=== PATIENT | female | born 1950 | race Caucasian/White ===

== ENCOUNTER 2018-05-30 11:07 | Emergency (ER) | payer OTHER ==
--- NOTE | 2018-05-30 11:36 | RAD REPORT ---
EXAM DESCRIPTION: CT - Ct Stroke Brain Wo Cont - 05/30/2018 11:28 am CLINICAL HISTORY: SLURRED SPEECH CVA symptomology COMPARISON: [id number] dated 01/08/2014; THORAX WO CONTRAST dated 12/17/2014 TECHNIQUE: All CT scans are performed using dose optimization technique as appropriate and may inclu de automated exposure control or mA/KV adjustment according to patient size. FINDINGS: No intracranial hemorrhage, hydrocephalus or extra-axial fluid collection.Mild generalized brain atrophy.No areas of brain edema or evidence of midline shift. The paranasal sinuses and mastoids are clear. The calvarium is intact. IMPRESSION: No acute intracranial abnormality. If there is continued clinical concern for CVA, MR i maging of the brain would be recommended.
[2018-05-30 11:43] LABS: Absolute Lymphocytes (CBC) 0.9 K/uL (0.7-4.9); Absolute Monocytes 0.2 K/uL (0.1-1.3); Basophils % 0.7 % (0-1.3); Eosinophils % 0.1 % (0-4.4); Hematocrit 39.5 % (36.0-45.0); Lymphocytes % 28.3 % (15.3-44.8); MCH 30.5 pg (27.0-35.0); MCV 88.3 fL (80-100); MPV 7.7 fL (7.6-11.3); Monocytes % 7.1 % (3.3-12.3); RBC Red Blood Cell Count 4.48 M/uL (3.86-4.86)
[2018-05-30 11:45] LABS: Protime INR 0.94
[2018-05-30 12:03] LABS: ALT/SGPT 20 U/L (12-78); AST/SGOT 21 U/L (15-37); Albumin 3.2 g/dL (3.4-5.0); Alkaline Phosphatase 104 U/L (45-117); BUN Blood Urea Nitrogen 11 mg/dL (7-18); Bicarbonate 25 mmol/L (21-32); Bilirubin Direct < 0.1 mg/dL (0-0.2); Bilirubin Total 0.2 mg/dL (0.2-1.0); Glucose Level 157 mg/dL (74-106); Magnesium 1.7 mg/dL (1.8-2.4); NT PRO-BNP 369 pg/mL (<125); Sodium Level 135 mmol/L (136-145); Troponin (Emerg Dept Use Only) < 0.02 ng/mL (0.0-0.045)
--- NOTE | 2018-05-30 12:33 | RAD REPORT ---
EXAM DESCRIPTION: RAD - Chest Single View - 05/30/2018 11:42 am CLINICAL HISTORY: AMS Chest pain. COMPARISON: CHEST SINGLE VIEW dated 12/17/2014; CHEST SINGLE VIEW dated 05/16/2011; CHEST SINGLE VIEW dated 05/04/2008; CHEST PA AND LAT 2 VIEW dated 06/13/2002 FINDINGS: Portable technique limits examination quality. The lungs are grossly clear. The heart is normal in size. No displaced fractures.Hardware is present proximal right humerus. IMPRESSION: No acute intrathoracic process suspected.
[2018-05-30] MEDS ORDERED: D5 0.45 NS 1,000 ML IV ONE (12:59)
[2018-05-30] MEDS ORDERED: HYDROCODONE/APAP 7.5/325 MG TAB ONE (13:24)
[2018-05-30] MEDS ORDERED: MAGNESIUM SULFATE 1 gm IVPB 1 GM/100 ML BAG IV ONE (13:24)
--- NOTE | 2018-05-30 14:06 | ER ---
Nurse's Notes [facility] Name: Christy Ceballos Age: 67 yrs Sex: Female : 1950 Arrival Date: 05/30/2018 Time: 11:13 Bed 4 Private MD: Diagnosis: Hypoglycemia, unspecified Presentation: 05/30 11:04 Presenting complaint: EMS states: Pt was watching TV w/ and suddenly became ph unresponsive and slid off of couch, pt unresponsive en route to ED, symptom onset approx [address] THRU ORDER TAKER. Transition of care: patient was not received from another setting of care. Onset of symptoms was May 30, 2018. Risk Assessment: Do you want to hurt yourself or someone else? Patient reports no desire to harm self or others. Care prior to arrival: None. upon arrival to ED EMS checked BGL, found to below at 30, 1 amp D50 administered. 11:04 Method Of Arrival: EMS: [facility] ph 11:04 Acuity: ASHLEY 2 ph 14:41 Initial Sepsis Screen: Does the patient meet any 2 criteria? No. Patient's initial aj1 sepsis screen is negative. Does the patient have a suspected source of infection? No. Patient's initial sepsis screen is negative. Historical: - Allergies: 11:30 Morphine; aj1 - Home Meds: 11:30 carisoprodol 350 mg Oral tab 1 tab fou times per day [Active]; diazepam 10 mg Oral tab aj1 1 tab 4 times per day [Active]; furosemide 40 mg Oral tab 1 tab 3 times per day as needed for edema [Active]; gabapentin 600 mg oral tab 1 tab 3 times per day [Active]; gemfibrozil 600 mg Oral tab 1 tab 2 times per day [Active]; glipizide 10 mg Oral tab 1 tab 2 times per day [Active]; hydrocodone-acetaminophen 10-325 mg Oral tab 1 tab every 4 hours as needed for pain [Active]; metformin 500 mg Oral Tb24 1 tab once daily [Active]; metoprolol tartrate 100 mg Oral tab 1 tab 2 times per day [Active]; NitroQuick SL 0.4 mg as needed [Active]; promethazine 25 mg Oral tab 1 tab 2 times per day [Active]; quinapril 40 mg Oral tab 1 tab once daily [Active]; quinine sulfate 324 mg Oral cap 2 caps at bedtime [Active]; ranitidine HCl 300 mg Oral cap 1 cap once daily [Active]; - PMHx: 11:34 Hypertension; Diabetes - NIDDM; CAD; Hyperlipidemia; GERD; Anemia; iron deficiency; aj1 cobalamin deficiency; hypomagnesemia; chronic pain syndrome; chronic low back pain; osteoarthritis; Degenerative disc disease; ankylosing spondylitis; - Immunization history:: Adult Immunizations up to date. - Social history:: Smoking status: Patient/guardian denies using tobacco. - Ebola Screening: : No symptoms or risks identified at this time. Screenin:30 Abuse screen: Denies threats or abuse. Denies injuries from another. aj1 11:30 Nutritional screening: No deficits noted. Tuberculosis screening: No symptoms or risk aj1 factors identified. 15:30 Fall Risk Fall in past 12 months (25 points). No secondary diagnosis (0 pts). No IV (0 aj1 pts). Ambulatory Aid- Crutches/Cane/Walker (15 pts). Gait- Weak (10 pts.). Mental Status- Oriented to own ability (0 pts). Total Lentz Fall Scale indicates Low Risk Score (25-44 pts). As available Patient and Family Educated on Fall Prevention Program and strategies. Assessment: 11:04 Reassessment: FSBS 30 by EMS personnel. aj1 11:04 Reassessment: RHODA Gold at bedside to assess patient. aj1 11:05 General: Behavior is unresponsive. Pain: Unable to use pain scale. Patient is aj1 unresponsive. Neuro: Level of Consciousness is unresponsive. Cardiovascular: Patient's skin is warm and dry. Respiratory: Airway is patent Respiratory effort is even, unlabored, Respiratory pattern is regular, symmetrical. 11:06 Reassessment: D50 given by Josette Parks RN. aj1 11:07 Reassessment: Patient opens eyes, is able to tell us her name, follow commands. Patient aj1 is able to move all 4 extremities. 11:11 Reassessment: Patient transported to [place] via stretcher, accompanied by Jerald Chirinos RN. aj1 11:22 Reassessment: Patient returned to room. aj1 11:23 Reassessment: CXR done at bedside. aj1 11:30 General: Appears in no apparent distress. comfortable, Behavior is calm, cooperative, aj1 appropriate for age. Pain: Complains of pain in back Pain currently is 8 out of 10 on a pain scale. Neuro: Level of Consciousness is awake, alert, obeys commands, Oriented to person, place, time, situation, Beater Engineer are equal bilaterally Moves all extremities. Full function Speech is normal, Facial symmetry appears normal. Cardiovascular: Heart tones S1 S2 present Patient's skin is warm and dry. Rhythm is regular. Respiratory: Airway is patent Respiratory effort is even, unlabored, Respiratory pattern is regular, symmetrical. GI: No signs and/or symptoms were reported involving the gastrointestinal system. Abdomen is non-distended. : No signs and/or symptoms were reported regarding the genitourinary system. EENT: No signs and/or symptoms were reported regarding the EENT system. Derm: No signs and/or symptoms reported regarding the dermatologic system. Skin is pink, warm \T\ dry. normal. Musculoskeletal: No signs and/or symptoms reported regarding the musculoskeletal system. Circulation, motion, and sensation intact. 11:35 Reassessment: Labs drawn and sent by Josette Parks RN. aj1 11:35 Reassessment: NIHSS performed by RHODA Gold. aj1 11:39 Reassessment: FSBS rechecked, currently 110. aj1 11:39 Reassessment: Hold D5 1/2 NS per RHODA Gold. aj1 11:40 Reassessment: Swallow screen done, patient passed. aj1 11:41 Reassessment: EKG done by VANITA Alonso. aj1 12:30 Reassessment: Patient appears in no apparent distress at this time. No changes from aj1 previously documented assessment. Patient and/or family updated on plan of care and expected duration. Pain level reassessed. Patient is alert, oriented x 3, equal unlabored respirations, skin warm/dry/pink. 13:30 Reassessment: Patient and/or family updated on plan of care and expected duration. Pain aj1 level reassessed. General: Appears in no apparent distress. comfortable, Behavior is calm, cooperative, appropriate for age. Neuro: Level of Consciousness is awake, alert, obeys commands, Oriented to person, place, time, situation, Beater Engineer are equal bilaterally Moves all extremities. Full function Speech is normal, Facial symmetry appears normal. Cardiovascular: Patient's skin is warm and dry. Respiratory: Airway is patent Respiratory effort is even, unlabored, Respiratory pattern is regular, symmetrical. GI: No signs and/or symptoms were reported involving the gastrointestinal system. : No signs and/or symptoms were reported regarding the genitourinary system. EENT: No signs and/or symptoms were reported regarding the EENT system. Derm: No signs and/or symptoms reported regarding the dermatologic system. Skin is pink, warm \T\ dry. normal. Musculoskeletal: No signs and/or symptoms reported regarding the musculoskeletal system. Circulation, motion, and sensation intact. 14:36 Reassessment: Patient appears in no apparent distress at this time. No changes from aj1 previously documented assessment. Patient and/or family updated on plan of care and expected duration. Pain level reassessed. Patient is alert, oriented x 3, equal unlabored respirations, skin warm/dry/pink. Vital Signs: 11:30 BP 88 / 67; Pulse 74; Resp 16; Pulse Ox 100% on 2 lpm NC; ph 11:35 BP 107 / 63; Pulse 72; Resp 18; Pulse Ox 99% on R/A; aj1 12:30 BP 97 / 56; Pulse 77; Resp 20; Pulse Ox 96% on R/A; aj1 13:30 BP 121 / 62; Pulse 75; Resp 18; Pulse Ox 96% on R/A; aj1 14:38 BP 109 / 51; Pulse 74; Resp 18; Pulse Ox 95% on R/A; aj1 NIH Stroke Scale Scores: 11:35 NIHSS Score: 0 cp ED Course: 11:06 Inserted saline lock: 22 gauge in left forearm, using aseptic technique. ,using aseptic 1 technique. by Josette Parks RN. 11:13 Patient arrived in ED. bd 11:27 Tremaine Jackson MD is Attending Physician. britany 11:27 CT completed. Patient tolerated procedure well. Patient moved back from CT. cw1 11:27 Tremaine Jain PA is PHCP. cp 11:30 Triage completed. ph 11:30 Patient has correct armband on for positive identification. Bed in low position. Call aj1 light in reach. Side rails up X 1. bus driver/monitor on. Pulse ox on. NIBP on. 11:30 No provider procedures requiring assistance completed. aj1 11:32 Arm band placed on. ph 11:46 Marlene Cooney, RN is Primary Nurse. aj1 13:51 Urine collected: clean catch specimen, cloudy, simon colored. jb1 15:34 IV discontinued, intact, bleeding controlled, No redness/swelling at site. Pressure aj1 dressing applied. Administered Medications: 11:05 Drug: D50W 50 ml Route: IVP; Site: left forearm; ph 15:30 Follow up: Response: No adverse reaction aj1 13:19 Drug: Magnesium Sulfate 1 grams Route: IVPB; Infused Over: 1 hrs; Site: left forearm; aj1 14:44 Follow up: IV Status: Completed infusion; IV Intake: 100ml aj1 13:20 Drug: [place] (7.5 mg-325 mg) 1 tabs Route: PO; aj1 14:43 Follow up: Response: No adverse reaction aj1 22:35 Not Given (Physician Discretion): D5-1/2 NS 1000 ml IV at 75 ml/hr continuous aj1 Point of Care Testing: Blood Glucose: 11:04 Blood Glucose: 30 mg/dL; hb 11:39 Blood Glucose: 110 mg/dL; hb 12:57 Blood Glucose: 117 mg/dL; aj1 Ranges: Intake: 14:44 IV: 100ml; Total: 100ml. aj1 Outcome: 14:05 Discharge ordered by . cp 15:30 Discharged to home ambulatory, by Josette Parks RN aj1 15:30 Condition: good 15:30 Discharge instructions given to patient, by Josette Parks RN 15:34 Patient left the ED. hb NIH Stroke Scale - NIH Stroke Score Date: 05/30/2018 Time: 11:35 Total Score = 0 1a. Level of Consciousness (LOC) - 0(Alert) 1b. Level of Consciousness (LOC) (Year \T\ Age) - 0(Both) 1c. LOC Commands (Open \T\ Closes Eyes/Senior Recruiter) - 0(Both) 2. Best Gaze (Lateral Gaze Paresis) - 0(Normal) 3. Visual Field Loss - 0(No visual loss) 4. Facial Palsy - 0(Normal) 5a. Left Arm: Motor (10-second hold) - 0(No drift) 5b. Right Arm: Motor (10-second hold) - 0(No drift) 6a. Left Leg: Motor (5-second hold - always test supine) - 0(No drift) 6b. Right Leg: Motor (5-second hold - always test supine) - 0(No drift) 7. Limb Ataxia (finger/nose \T\ heel/wall - test with eyes open) - 0(Absent) 8. Sensory Loss (pinprick arms/legs/face) - 0(Normal) 9. Best Language: Aphasia (description/naming/reading) - 0(No aphasia) 10. Dysarthria (speech clarity - read or repeat words) - 0(Normal) 11. Extinction and Inattention (visual/tactile/auditory/spatial/personal) - 0(No abnormality) Initials: cp Signatures: Arsh Whatley jb1 Georgie Márquez Angela RN RN aj1 Tremaine Jackson MD MD cha Woodley, Debra cw1 Oralia Chirinos RN RN ph Tremaine Jain PA PA cp Mignon Parks, YANELI RN hb
--- NOTE | 2018-05-30 14:06 | EDPHYS ---
Physician Documentation [facility] Name: Christy Ceballos Age: 67 yrs Sex: Female : 1950 Arrival Date: 05/30/2018 Time: 11:13 Bed 4 Private MD: SADAF Physician Tremaine Jackson HPI: 05/30 11:20 This 67 yrs old Female presents to ER via EMS with complaints of AMS. cp 11:20 The patient's problem is reported as altered mental status, confused, decreased cp responsiveness, weakness, that is generalized. Onset: The symptoms/episode began/occurred suddenly, this morning. 11:20 Duration: The episode is continuous. cp 11:20 reports he left house around 0900 this morning to last picker breakfast. Patient cp appeared normal, and when he returned approximately 15 minutes later, patient was found partially on floor and couch with decreased level of consciousness. 11:20 Patient's baseline: Neuro: alert and fully oriented, Motor: no deficits, Ambulation: cp walks without assistance, Speech: normal. Historical: - Allergies: 11:30 Morphine; aj1 - Home Meds: 11:30 carisoprodol 350 mg Oral tab 1 tab fou times per day [Active]; diazepam 10 mg Oral tab aj1 1 tab 4 times per day [Active]; furosemide 40 mg Oral tab 1 tab 3 times per day as needed for edema [Active]; gabapentin 600 mg oral tab 1 tab 3 times per day [Active]; gemfibrozil 600 mg Oral tab 1 tab 2 times per day [Active]; glipizide 10 mg Oral tab 1 tab 2 times per day [Active]; hydrocodone-acetaminophen 10-325 mg Oral tab 1 tab every 4 hours as needed for pain [Active]; metformin 500 mg Oral Tb24 1 tab once daily [Active]; metoprolol tartrate 100 mg Oral tab 1 tab 2 times per day [Active]; NitroQuick SL 0.4 mg as needed [Active]; promethazine 25 mg Oral tab 1 tab 2 times per day [Active]; quinapril 40 mg Oral tab 1 tab once daily [Active]; quinine sulfate 324 mg Oral cap 2 caps at bedtime [Active]; ranitidine HCl 300 mg Oral cap 1 cap once daily [Active]; - PMHx: 11:34 Hypertension; Diabetes - NIDDM; CAD; Hyperlipidemia; GERD; Anemia; iron deficiency; aj1 cobalamin deficiency; hypomagnesemia; chronic pain syndrome; chronic low back pain; osteoarthritis; Degenerative disc disease; ankylosing spondylitis; - Immunization history:: Adult Immunizations up to date. - Social history:: Smoking status: Patient/guardian denies using tobacco. - Ebola Screening: : No symptoms or risks identified at this time. ROS: 11:25 Constitutional: Negative for body aches, chills, fever, poor PO intake. cp 11:25 Cardiovascular: Negative for chest pain. cp 11:25 Respiratory: Negative for cough, wheezing. 11:25 Abdomen/GI: Negative for abdominal pain, vomiting, diarrhea, constipation, black/tarry stool, rectal bleeding. 11:25 Skin: Negative for cellulitis, rash. 11:25 Neuro: Positive for altered mental status, weakness, Negative for headache, seizure activity. 11:25 All other systems are negative. Exam: 11:40 Constitutional: The patient appears in no acute distress, alert, awake, cp non-diaphoretic, non-toxic, well developed, well nourished. 11:40 Head/Face: Normocephalic, atraumatic. cp 11:40 Eyes: Periorbital structures: appear normal, Pupils: equal, round, and reactive to light and accomodation, Extraocular movements: intact throughout, Conjunctiva: normal, no exudate, no injection, Lids and lashes: appear normal, bilaterally. 11:40 ENT: External ear(s): are unremarkable, Ear canal(s): are normal, clear, TM's: bulging, is not appreciated, bilaterally, dullness, bilaterally, erythema, is not appreciated, bilaterally, Nose: is normal, Mouth: Lips: moist, Oral mucosa: moist, Posterior pharynx: is normal, airway is patent, no erythema, no exudate. 11:40 Neck: C-spine: vertebral tenderness, is not appreciated, crepitus, is not appreciated, ROM/movement: is normal, is supple, without pain, no range of motions limitations, no meningismus, no nuchal rigidity. 11:40 Chest/axilla: Inspection: normal, Palpation: is normal, no crepitus, no tenderness. 11:40 Cardiovascular: Rate: normal, Rhythm: regular, Pulses: Pulses are 2+ in right radial artery and left radial artery. Edema: is not appreciated, JVD: is not appreciated. 11:40 Respiratory: the patient does not display signs of respiratory distress, Respirations: normal, no use of accessory muscles, no retractions, no splinting, no tachypnea, labored breathing, is not present, Breath sounds: are clear throughout, no decreased breath sounds, no stridor, no wheezing. 11:40 Abdomen/GI: Inspection: abdomen appears normal, Bowel sounds: active, all quadrants, Palpation: abdomen is soft and non-tender, in all quadrants. 11:40 Skin: cellulitis, is not appreciated, no rash present. 11:40 Neuro: Orientation: to person, place, situation, Mentation: able to follow commands, slow to respond, Cerebellar function: Romberg testing is negative, normal finger to nose testing, Motor: moves all fours, negative for focal deficits, Sensation: no obvious gross deficits. 11:50 ECG was reviewed by the Attending Physician. cp 11:58 Radiologist reports: no acute findings cp Vital Signs: 11:30 BP 88 / 67; Pulse 74; Resp 16; Pulse Ox 100% on 2 lpm NC; ph 11:35 BP 107 / 63; Pulse 72; Resp 18; Pulse Ox 99% on R/A; aj1 12:30 BP 97 / 56; Pulse 77; Resp 20; Pulse Ox 96% on R/A; aj1 13:30 BP 121 / 62; Pulse 75; Resp 18; Pulse Ox 96% on R/A; aj1 14:38 BP 109 / 51; Pulse 74; Resp 18; Pulse Ox 95% on R/A; aj1 NIH Stroke Scale Scores: 11:35 NIHSS Score: 0 cp MDM: 11:27 Patient medically screened. britany 11:29 ED course: Patient examined by me and tpa not felt to be warranted after marked cp improvement in mental status neuro exam after administration of 1 amp D50W. 14:03 Data reviewed: vital signs, nurses notes, lab test result(s), EKG, radiologic studies, cp CT scan. 14:03 Differential diagnosis: CVA, TIA, metabolic disorder, drug effects, hypoglycemia. Test cp interpretation: by ED physician or midlevel provider: ECG, plain radiologic studies. Counseling: I had a detailed discussion with the patient and/or guardian regarding: the historical points, exam findings, and any diagnostic results supporting the discharge/admit diagnosis, lab results, radiology results, the need for outpatient follow up, an tank pumper panelboard, to return to the emergency department if symptoms worsen or persist or if there are any questions or concerns that arise at home. Response to treatment: the patient's symptoms have markedly improved after treatment, VSS. Patient back to baseline after observation period in ED. Blood glucose stable. Will discharge to home for continued monitoring. 05/30 11:17 Order name: Basic Metabolic Panel 05/30 11:17 Order name: CBC with Diff cp 05/30 11:17 Order name: LFT's cp 05/30 11:17 Order name: Magnesium cp 05/30 11:17 Order name: NT PRO-BNP cp 05/30 11:17 Order name: PT-INR cp 05/30 11:17 Order name: Troponin (emerg Dept Use Only) cp 05/30 11:44 Order name: CBC with Automated Diff; Complete Time: 11:54 EDMS 05/30 14:02 Interpretation: Normal except: WBC 3.2. 05/30 11:47 Order name: Protime (+INR); Complete Time: 11:54 EDMS 05/30 12:03 Order name: Basic Metabolic Panel; Complete Time: 12:51 EDMS 05/30 14:02 Interpretation: Normal except: NA 135; GLUC 157. 05/30 12:03 Order name: Liver (Hepatic) Function; Complete Time: 12:51 EDMS 05/30 12:04 Order name: Troponin (Emerg Dept Use Only); Complete Time: 12:51 EDMS 05/30 14:03 Interpretation: TROPED < 0.02; Reviewed. 05/30 12:04 Order name: NT PRO-BNP; Complete Time: 12:51 EDMS 05/30 12:04 Order name: Magnesium; Complete Time: 12:51 EDMS 05/30 14:03 Interpretation: Abnormal: MG 1.7. 05/30 11:17 Order name: EKG; Complete Time: 11:18 cp 05/30 11:17 Order name: Cardiac monitoring; Complete Time: 11:38 cp 05/30 11:17 Order name: CT Head Brain wo Cont cp 05/30 11:17 Order name: XRAY Chest (1 view) cp 05/30 11:21 Order name: CT Stroke Brain w/o Contrast bd 05/30 11:37 Order name: CT; Complete Time: 11:54 EDMS 05/30 11:54 Interpretation: Report reviewed. cp 05/30 12:27 Order name: Diet Ada 2000 Jamir; Complete Time: 12:27 cp 05/30 12:34 Order name: RAD; Complete Time: 12:51 EDMS 05/30 13:36 Order name: Urine Microscopic Only cp 05/30 15:13 Order name: Glucose, Ancillary Testing; Complete Time: 12:01 EDMS 05/30 15:13 Order name: Glucose, Ancillary Testing; Complete Time: 12:01 EDMS 05/30 15:13 Order name: Glucose, Ancillary Testing; Complete Time: 12:01 EDMS 05/30 11:17 Order name: EKG - Nurse/Tech; Complete Time: 11:38 cp 05/30 11:17 Order name: IV Saline Lock; Complete Time: 11:38 cp 05/30 11:17 Order name: Labs collected and sent; Complete Time: 11:38 cp 05/30 11:17 Order name: O2 Per Protocol; Complete Time: 11:38 cp 05/30 11:17 Order name: O2 Sat Monitoring; Complete Time: 11:38 cp 05/30 13:36 Order name: Urine Dipstick-Ancillary (obtain specimen); Complete Time: 13:51 cp 05/30 14:04 Order name: Accucheck Blood Glucose; Complete Time: 15:14 cp EC:50 Rate is 70 beats/min. Rhythm is regular. MN interval is normal. QRS interval is normal. cp QT interval is normal. Interpreted by me. Reviewed by me. Administered Medications: 11:05 Drug: D50W 50 ml Route: IVP; Site: left forearm; ph 15:30 Follow up: Response: No adverse reaction aj1 13:19 Drug: Magnesium Sulfate 1 grams Route: IVPB; Infused Over: 1 hrs; Site: left forearm; aj1 14:44 Follow up: IV Status: Completed infusion; IV Intake: 100ml aj1 13:20 Drug: [place] (7.5 mg-325 mg) 1 tabs Route: PO; aj1 14:43 Follow up: Response: No adverse reaction aj1 22:35 Not Given (Physician Discretion): D5-1/2 NS 1000 ml IV at 75 ml/hr continuous aj1 Point of Care Testing: Blood Glucose: 11:04 Blood Glucose: 30 mg/dL; hb 11:39 Blood Glucose: 110 mg/dL; hb 12:57 Blood Glucose: 117 mg/dL; aj1 Ranges: Critical Glucose Levels:Adult <50 mg/dl or >400 mg/dl <40 mg/dl or >180 mg/dl Disposition: 15:45 Chart complete. cp Disposition: 05/30/18 14:05 Discharged to Home. Impression: Hypoglycemia, unspecified. - Condition is Stable. - Discharge Instructions: Hypoglycemia, Blood Glucose Monitoring, Adult. - Medication Reconciliation Form, Thank You Letter, Antibiotic Education, Prescription Opioid Use form. - Follow up: Private Physician; When: 1 - 2 days; Reason: Recheck today's complaints. - Problem is new. - Symptoms have improved. NIH Stroke Scale - NIH Stroke Score Date: 05/30/2018 Time: 11:35 Total Score = 0 1a. Level of Consciousness (LOC) - 0(Alert) 1b. Level of Consciousness (LOC) (Year \T\ Age) - 0(Both) 1c. LOC Commands (Open \T\ Closes Eyes/Telephone Recorder) - 0(Both) 2. Best Gaze (Lateral Gaze Paresis) - 0(Normal) 3. Visual Field Loss - 0(No visual loss) 4. Facial Palsy - 0(Normal) 5a. Left Arm: Motor (10-second hold) - 0(No drift) 5b. Right Arm: Motor (10-second hold) - 0(No drift) 6a. Left Leg: Motor (5-second hold - always test supine) - 0(No drift) 6b. Right Leg: Motor (5-second hold - always test supine) - 0(No drift) 7. Limb Ataxia (finger/nose \T\ heel/wall - test with eyes open) - 0(Absent) 8. Sensory Loss (pinprick arms/legs/face) - 0(Normal) 9. Best Language: Aphasia (description/naming/reading) - 0(No aphasia) 10. Dysarthria (speech clarity - read or repeat words) - 0(Normal) 11. Extinction and Inattention (visual/tactile/auditory/spatial/personal) - 0(No abnormality) Initials: cp Addendum: 06/01/2018 07:24 Co-signature as Attending Physician, Tremaine Jackson MD I agree with the britany assessment and plan of care. Signatures: Dispatcher [employer] Marlene Corbin RN RN aj1 Tremaine Jackson MD MD cha Hall, Patricia RN RN Tremaine Jain PA PA cp Mignon Parks, RN RN hb Corrections: (The following items were deleted from the chart) 05/30 15:34 14:05 05/30/2018 14:05 Discharged to Home. Impression: Hypoglycemia, hb unspecified. Condition is Stable. Forms are Medication Reconciliation Form, Thank You Letter, Antibiotic Education, Prescription Opioid Use. Follow up: Private Physician; When: 1 - 2 days; Reason: Recheck today's complaints. Problem is new. Symptoms have improved. cp
[2018-05-30 15:42] LABS: Urine Bacteria <20 /HPF (<20); Urine Culture Reflex Order NOT NEEDED; Urine RBC <5 /HPF (NONE SEEN)
[2018-05-30 16:43] VITALS: BP 109/51; O2SAT 95
== END 2018-05-30 15:34 | disposition home or self-care (01) ==
LOC: ER 11:07
DX: E11.649 Type 2 diabetes mellitus with hypoglycemia without coma (principal); E78.5 Hyperlipidemia, unspecified; I10 Essential (primary) hypertension; I25.10 Atherosclerotic heart disease of native coronary artery without angina pectoris; K21.9 Gastro-esophageal reflux disease without esophagitis; D50.9 Iron deficiency anemia, unspecified; G89.4 Chronic pain syndrome; M54.5 Low back pain; M19.90 Unspecified osteoarthritis, unspecified site; M45.9 Ankylosing spondylitis of unspecified sites in spine; Z79.84 Long term (current) use of oral hypoglycemic drugs; Z79.899 Other long term (current) drug therapy
CPT/HCPCS: 36415; 70450; 71045; 80048; 80076; 81015; 82962 ×3; 83735; 83880; 84484; 85025; 85610; 96365; 96375; 99285; J3475

== ENCOUNTER 2021-10-10 04:09 | Inpatient (IN) | payer OTHER ==
[2021-10-10] MEDS ORDERED: ONDANSETRON 4 MG/2 ML VIAL ONE ×2 (04:44→15:17)
[2021-10-10] MEDS ORDERED: NA CHLORIDE 0.9% 1,000 ML ONE (04:45)
[2021-10-10 05:03] LABS: Absolute Lymphocytes (CBC) 1.9 K/uL (0.7-4.9); Hematocrit 37.5 % (36.0-45.0); Lymphocytes % 23.3 % (15.3-44.8); MPV 7.4 fL (7.6-11.3); RBC Red Blood Cell Count 4.27 M/uL (3.86-4.86)
[2021-10-10 05:30] LABS: ALT/SGPT 16 U/L (12-78); AST/SGOT 11 U/L (15-37); Albumin 2.8 g/dL (3.4-5.0); Alkaline Phosphatase 86 U/L (45-117); BUN Blood Urea Nitrogen 4 mg/dL (7-18); Bicarbonate 30 mmol/L (21-32); Bilirubin Total 0.3 mg/dL (0.2-1.0); Glucose Level 165 mg/dL (74-106); Lipase 34 U/L (73-393); Potassium 2.4 mmol/L (3.5-5.1); Protein, Total 6.6 g/dL (6.4-8.2)
[2021-10-10 05:32] LABS: Sodium Level 139 mmol/L (136-145)
[2021-10-10 06:19] LABS: Urine Blood Negative (Negative); Urine Glucose Negative (Negative); Urine Protein Negative (Negative)
[2021-10-10] MEDS ORDERED: KETOROLAC 30 MG/ML INJ ONE (06:30)
[2021-10-10] MEDS ORDERED: KCL 20 MEQ/100 mL IVPB 100 ML IV ONE (06:30)
[2021-10-10] MEDS ORDERED: POTASSIUM 25 MEQ EFFERV TAB ONE (06:30)
--- NOTE | 2021-10-10 07:14 | ER ---
Nurse's Notes [facility] Name: Christy Ceballos Age: 71 yrs Sex: Female : 1950 Arrival Date: 10/10/2021 Time: 04:10 Bed 20 Private MD: Diagnosis: Hypokalemia;Flank Pain Presentation: 10/10 04:11 Chief complaint: EMS states: "Been having bilateral flank pain. Been unable to lay flat tw5 for several days. just passed last night.". Coronavirus screen: Vaccine status: Patient reports being unvaccinated. Ebola Screen: Patient negative for fever greater than or equal to 101.5 degrees Fahrenheit, and additional compatible Ebola Virus Disease symptoms Patient denies exposure to infectious person. Patient denies travel to an Ebola-affected area in the 21 days before illness onset. Initial Sepsis Screen: Does the patient meet any 2 criteria? No. Patient's initial sepsis screen is negative. Does the patient have a suspected source of infection? No. Patient's initial sepsis screen is negative. Risk Assessment: Do you want to hurt yourself or someone else? Patient reports no desire to harm self or others. Onset of symptoms is unknown. 04:11 Method Of Arrival: EMS: [facility] tw5 04:11 Acuity: ASHLEY 3 Historical: - Allergies: 04:14 Morphine; - Home Meds: 15:11 carisoprodol 350 mg Oral tab 1 tab fou times per day [Active]; diazepam 10 mg Oral tab ph 1 tab 4 times per day [Active]; furosemide 40 mg Oral tab 1 tab 3 times per day as needed for edema [Active]; gabapentin 600 mg Oral tab 1 tab 3 times per day [Active]; gemfibrozil 600 mg Oral tab 1 tab 2 times per day [Active]; glipizide 10 mg Oral tab 1 tab 2 times per day [Active]; hydrocodone-acetaminophen 10-325 mg Oral tab 1 tab every 4 hours as needed for pain [Active]; metformin 500 mg Oral Tb24 1 tab once daily [Active]; metoprolol tartrate 100 mg Oral tab 1 tab 2 times per day [Active]; NitroQuick SL 0.4 mg as needed [Active]; promethazine 25 mg Oral tab 1 tab 2 times per day [Active]; quinapril 40 mg Oral tab 1 tab once daily [Active]; quinine sulfate 324 mg Oral cap 2 caps at bedtime [Active]; ranitidine HCl 300 mg Oral cap 1 cap once daily [Active]; - PMHx: 13:50 Anemia; Ankylosing Spondylitis; CAD; CHRONIC LOW BACK PAIN; chronic pain syndrome; ph cobalamin deficiency; Degenerative disc disease; Diabetes - NIDDM; GERD; Hyperlipidemia; Hypertension; Hypomagnesemia; iron deficiency; osteoarthritis; - Immunization history:: Client reports having NOT received the Covid vaccine. - Social history:: Smoking status: Patient reports the use of cigarette tobacco products, smokes one-half pack cigarettes per day. Screenin:23 Abuse screen: Denies threats or abuse. Nutritional screening: No deficits noted. bb Tuberculosis screening: No symptoms or risk factors identified. Fall Risk None identified. Assessment: 04:23 General: Appears in no apparent distress. uncomfortable, Behavior is calm, cooperative. bb Pain: Complains of pain in back Pain currently is 8 out of 10 on a pain scale. Neuro: Level of Consciousness is awake, alert, obeys commands, Oriented to person, place, time, situation. Cardiovascular: Capillary refill < 3 seconds Patient's skin is warm and dry. Cardiovascular: Edema present in bilateral lower extremities. Respiratory: Respiratory effort is even, unlabored, Respiratory pattern is regular. GI: Reports nausea. Derm: Skin is pink, warm \\T\\ dry. Musculoskeletal: Circulation, motion, and sensation intact. 04:53 Reassessment: pt to CT scan via stretcher with motor vehicle technician. bb 06:20 Reassessment: Patient is alert, oriented x 3, equal unlabored respirations, skin bb warm/dry/pink. awaiting diagnostic results. Vital Signs: 04:11 BP 164 / 70; Pulse 74; Resp 18; Temp 98.6(O); Pulse Ox 98% on R/A; Weight 106.59 kg; tw5 Height 5 ft. 8 in. (172.72 cm); Pain 10/10; 06:22 BP 160 / 72; Pulse 76; Resp 18 S; Pulse Ox 97% on R/A; bb 04:11 Body Mass Index 35.73 (106.59 kg, 172.72 cm) tw5 04:11 blood sugar 191 by EMS tw5 ED Course: 04:10 Patient arrived in ED. tw5 04:14 Triage completed. tw5 04:15 Philippe Zabala MD is Attending Physician. mh7 04:23 Patient has correct armband on for positive identification. Bed in low position. Call bb light in reach. Side rails up X 1. Pulse ox on. NIBP on. 04:23 Maintain EMS IV. Site clean \\T\\ dry. Gauge \\T\\ site: 18 g L wrist. bb 04:45 Initial lab(s) drawn, by me, sent to lab. bb 04:51 Indigo Ross, RN is Primary Nurse. bb 05:13 Abdomen In Process Unspecified. EDMS 05:32 Notified ED physician of a critical lab result(s). 2.4 potassium. tw5 07:05 EKG done, by ED staff. wm 07:12 Ghassan Chamberlain MD is Hospitalizing Provider. mh7 07:15 Report given to Zoltan GROVES. bb 07:25 Primary Nurse role handed off by Indigo Ross RN bd 07:48 Zoltan Milner RN is Primary Nurse. ll1 20:43 No provider procedures requiring assistance completed. Patient admitted, IV remains in lg3 place. 20:44 Arm band placed on right wrist. lg3 Administered Medications: 05:07 Drug: NS 0.9% 1000 ml Route: IV; Rate: 1 bolus; Site: left wrist; bb 06:22 Follow up: IV Status: Completed infusion; IV Intake: 900ml bb 05:07 Drug: Zofran (Ondansetron) 4 mg Route: IVP; Site: left wrist; bb 06:21 Follow up: Response: No adverse reaction bb 05:07 CANCELLED (Physician Discretion): morphine 4 mg IVP once; RASS on ADMIN: Combtv4, Very bb Agttd3, Agttd2, Rstlss1, AlertClm0, Drwsy-1, Lt Sdtn-2, Mod Sdtn-3, Dp Sdtn-4, UnArsble-5 06:39 Drug: Ketorolac 15 mg Route: IVP; Site: left wrist; bb 07:02 Follow up: Response: No adverse reaction bb 07:48 Follow up: Response: No adverse reaction; Pain is unchanged, physician notified ll1 06:40 Drug: Potassium Effervescent Tablet 50 mEq Route: PO; bb 07:02 Follow up: Response: No adverse reaction bb 06:40 Drug: Potassium Chloride 20 mEq Route: IV; Rate: per protocol; Site: left wrist; bb 09:12 Follow up: IV Status: Completed infusion ap3 Intake: 06:22 IV: 900ml; Total: 900ml. bb Outcome: 07:14 Decision to Hospitalize by Provider. [facility] 20:44 Admitted to ICU accompanied by nurse, via stretcher, room 1, Report called to melinda Doll RN 20:44 Condition: stable 20:44 Instructed on the need for admit. 20:57 Patient left the ED. vc1 Signatures: Dispatcher [employer] EDMS Georgie Márquez Brenda, RN RN bb Oralia Chirinos RN YANELI Libby John RN RN ap3 Caroline Smith RN RN lg3 Zoltan Milner RN RN 1 Philippe Zablaa MD MD Kelsey Lyman Tiffany 5 Rosamaria Clements RN RN vc1
--- NOTE | 2021-10-10 07:14 | EDPHYS ---
Physician Documentation [facility] Name: Christy Ceballos Age: 71 yrs Sex: Female : 1950 Arrival Date: 10/10/2021 Time: 04:10 Bed 20 Private MD: ED Physician Philippe Zabala HPI: 10/10 04:41 This 71 yrs old Female presents to ER via EMS with complaints of Back Pain. mh7 04:41 The patient complains of pain in the left flank and right flank. The pain does not mh7 radiate. Onset: The symptoms/episode began/occurred 4 day(s) ago. Modifying factors: The symptoms are alleviated by nothing. the symptoms are aggravated by movement, palpation/percussion. Associated signs and symptoms: Pertinent negatives: diarrhea, dizziness, dysuria, fever, urinary frequency, headache, hematuria, nausea, pain radiating to the lower extremities, vomiting. Severity of pain: At its worst the pain was moderate 3 day(s) ago, in the emergency department the pain is unchanged. Historical: - Allergies: 04:14 Morphine; tw5 - Home Meds: 15:11 carisoprodol 350 mg Oral tab 1 tab fou times per day [Active]; diazepam 10 mg Oral tab ph 1 tab 4 times per day [Active]; furosemide 40 mg Oral tab 1 tab 3 times per day as needed for edema [Active]; gabapentin 600 mg Oral tab 1 tab 3 times per day [Active]; gemfibrozil 600 mg Oral tab 1 tab 2 times per day [Active]; glipizide 10 mg Oral tab 1 tab 2 times per day [Active]; hydrocodone-acetaminophen 10-325 mg Oral tab 1 tab every 4 hours as needed for pain [Active]; metformin 500 mg Oral Tb24 1 tab once daily [Active]; metoprolol tartrate 100 mg Oral tab 1 tab 2 times per day [Active]; NitroQuick SL 0.4 mg as needed [Active]; promethazine 25 mg Oral tab 1 tab 2 times per day [Active]; quinapril 40 mg Oral tab 1 tab once daily [Active]; quinine sulfate 324 mg Oral cap 2 caps at bedtime [Active]; ranitidine HCl 300 mg Oral cap 1 cap once daily [Active]; - PMHx: 13:50 Anemia; Ankylosing Spondylitis; CAD; CHRONIC LOW BACK PAIN; chronic pain syndrome; ph cobalamin deficiency; Degenerative disc disease; Diabetes - NIDDM; GERD; Hyperlipidemia; Hypertension; Hypomagnesemia; iron deficiency; osteoarthritis; - Immunization history:: Client reports having NOT received the Covid vaccine. - Social history:: Smoking status: Patient reports the use of cigarette tobacco products, smokes one-half pack cigarettes per day. ROS: 04:41 Constitutional: Negative for fever, chills, and weight loss, Eyes: Negative for injury, mh7 pain, redness, and discharge, ENT: Negative for injury, pain, and discharge, Neck: Negative for injury, pain, and swelling, Cardiovascular: Negative for chest pain, palpitations, and edema, Respiratory: Negative for shortness of breath, cough, wheezing, and pleuritic chest pain, Abdomen/GI: Negative for abdominal pain, nausea, vomiting, diarrhea, and constipation, : Negative for injury, bleeding, discharge, and swelling, MS/Extremity: Negative for injury and deformity, Skin: Negative for injury, rash, and discoloration, Neuro: Negative for headache, weakness, numbness, tingling, and seizure, Psych: Negative for depression, anxiety, suicide ideation, homicidal ideation, and hallucinations, Allergy/Immunology: Negative for hives, rash, and allergies, Endocrine: Negative for neck swelling, polydipsia, polyuria, polyphagia, and marked weight changes, Hematologic/Lymphatic: Negative for swollen nodes, abnormal bleeding, and unusual bruising. Exam: 04:41 Head/Face: Normocephalic, atraumatic. Eyes: Pupils equal round and reactive to light, mh7 extra-ocular motions intact. Lids and lashes normal. Conjunctiva and sclera are non-icteric and not injected. Cornea within normal limits. Periorbital areas with no swelling, redness, or edema. Neck: Trachea midline, no thyromegaly or masses palpated, and no cervical lymphadenopathy. Supple, full range of motion without nuchal rigidity, or vertebral point tenderness. No Meningismus. Chest/axilla: Normal chest wall appearance and motion. Nontender with no deformity. No lesions are appreciated. Cardiovascular: Regular rate and rhythm with a normal S1 and S2. No gallops, murmurs, or rubs. Normal PMI, no JVD. No pulse deficits. Respiratory: Lungs have equal breath sounds bilaterally, clear to auscultation and percussion. No rales, rhonchi or wheezes noted. No increased work of breathing, no retractions or nasal flaring. Abdomen/GI: Soft, non-tender, with normal bowel sounds. No distension or tympany. No guarding or rebound. No evidence of tenderness throughout. Skin: Warm, dry with normal turgor. Normal color with no rashes, no lesions, and no evidence of cellulitis. MS/ Extremity: Pulses equal, no cyanosis. Neurovascular intact. Full, normal range of motion. Neuro: Awake and alert, GCS 15, oriented to person, place, time, and situation. Cranial nerves II-XII grossly intact. Motor strength 5/5 in all extremities. Sensory grossly intact. Cerebellar exam normal. Normal gait. Psych: Awake, alert, with orientation to person, place and time. Behavior, mood, and affect are within normal limits. 04:41 Constitutional: The patient appears in no acute distress, alert, awake, uncomfortable. Vital Signs: 04:11 BP 164 / 70; Pulse 74; Resp 18; Temp 98.6(O); Pulse Ox 98% on R/A; Weight 106.59 kg; tw5 Height 5 ft. 8 in. (172.72 cm); Pain 10/10; 06:22 BP 160 / 72; Pulse 76; Resp 18 S; Pulse Ox 97% on R/A; bb 04:11 Body Mass Index 35.73 (106.59 kg, 172.72 cm) tw5 04:11 blood sugar 191 by EMS tw5 MDM: 07:12 Differential diagnosis: nephrolithiasis, pyelonephritis, UTI. Data reviewed: vital [facility] signs, nurses notes, lab test result(s), CBC, electrolytes, urinalysis, EKG, radiologic studies, CT scan. Data interpreted: Pulse oximetry: on room air is 97 %. Interpretation: normal. Counseling: I had a detailed discussion with the patient and/or guardian regarding: the historical points, exam findings, and any diagnostic results supporting the discharge/admit diagnosis, the presence of at least one elevated blood pressure reading (>120/80) during this emergency department visit, lab results, radiology results, the need for further work-up and treatment in the hospital. Response to treatment: the patient's symptoms have mildly improved after treatment. 07:14 Patient medically screened. [facility] 10/10 04:34 Order name: CBC with Diff; Complete Time: 05:17 [facility] 10/10 04:34 Order name: CMP; Complete Time: 05:33 [facility] 10/10 04:34 Order name: Lipase; Complete Time: 05:33 [facility] 10/10 04:34 Order name: Urine Microscopic Only [facility] 10/10 05:57 Order name: Magnesium [facility] 10/10 06:19 Order name: Urine Dipstick-Ancillary; Complete Time: 07:06 [facility] 10/10 08:25 Order name: Basic Metabolic Panel [facility] 10/10 08:25 Order name: Basic Metabolic Panel [facility] 10/10 08:25 Order name: CBC with Automated Diff [facility] 10/10 08:25 Order name: CBC with Automated Diff [facility] 10/10 08:25 Order name: Magnesium [facility] 10/10 08:25 Order name: Magnesium [facility] 10/10 08:35 Order name: COVID-19 SARS RT PCR (Document "Date of Onset" if Symptomatic) 10/10 11:29 Order name: Glucose, Ancillary Testing [facility] 10/10 04:34 Order name: IV Saline Lock; Complete Time: 04:36 [facility] 10/10 04:43 Order name: Abdomen [facility] 10/10 05:59 Order name: EKG; Complete Time: 05:59 [facility] 10/10 08:21 Order name: CONS Physician Consult [facility] 10/10 08:25 Order name: Physical Therapy Consult [facility] 10/10 08:25 Order name: 60g Consistent Carbohydrate (ADA 1800/2000) [facility] 10/10 15:42 Order name: Basic Metabolic Panel [facility] 10/10 15:42 Order name: Magnesium [facility] 10/10 18:11 Order name: Glucose, Ancillary Testing [facility] 10/10 04:34 Order name: Labs collected and sent; Complete Time: 04:51 [facility] 10/10 04:34 Order name: Urine Dipstick-Ancillary (obtain specimen); Complete Time: 06:21 [facility] 10/10 05:59 Order name: EKG - Nurse/Tech; Complete Time: 07:03 7 Administered Medications: 05:07 Drug: NS 0.9% 1000 ml Route: IV; Rate: 1 bolus; Site: left wrist; bb 06:22 Follow up: IV Status: Completed infusion; IV Intake: 900ml bb 05:07 Drug: Zofran (Ondansetron) 4 mg Route: IVP; Site: left wrist; bb 06:21 Follow up: Response: No adverse reaction bb 05:07 CANCELLED (Physician Discretion): morphine 4 mg IVP once; RASS on ADMIN: Combtv4, Very bb Agttd3, Agttd2, Rstlss1, AlertClm0, Drwsy-1, Lt Sdtn-2, Mod Sdtn-3, Dp Sdtn-4, UnArsble-5 06:39 Drug: Ketorolac 15 mg Route: IVP; Site: left wrist; bb 07:02 Follow up: Response: No adverse reaction bb 07:48 Follow up: Response: No adverse reaction; Pain is unchanged, physician notified ll1 06:40 Drug: Potassium Effervescent Tablet 50 mEq Route: PO; bb 07:02 Follow up: Response: No adverse reaction bb 06:40 Drug: Potassium Chloride 20 mEq Route: IV; Rate: per protocol; Site: left wrist; bb 09:12 Follow up: IV Status: Completed infusion ap3 Disposition Summary: 10/10/21 07:14 Hospitalization Ordered Hospitalization Status: Observation [facility] Provider: Ghassan Chamberlain Chad Condition: Stable [facility] Problem: new [facility] Symptoms: have improved [facility] Bed/Room Type: [place] [id number] Location: Intensive Care Unit(10/10/21 17:28) Room Assignment: 1-(10/10/21 17:28) Diagnosis - Hypokalemia [facility] - Flank Pain [facility] Forms: - Medication Reconciliation Form [facility] - SBAR form [facility] Signatures: Dispatcher [employer] EDMS Georgie Márquez Brenda, RN RN Oralia Cuba RN RN ph Holmes, Maurice, MD MD mh7 Wood, Tiffany [facility] Libby John RN3 Zoltan Milner RN ll1 Corrections: (The following items were deleted from the chart) 04:43 04:39 CT-ABD ordered. EDMS EDMS 05:07 04:45 morphine 4 mg IVP once; RASS on ADMIN: Combtv4, Very Agttd3, Agttd2, Rstlss1, bb AlertClm0, Drwsy-1, Lt Sdtn-2, Mod Sdtn-3, Dp Sdtn-4, UnArsble-5 ordered. [facility] 12:50 07:14 Telemetry/MedSurg (observation) [facility] :50 07:14 [facility] : 12:50 [facility] ER HOLD [facility] : 12:50 ERHOLD- bd
[2021-10-10] MEDS ORDERED: MORPHINE 4 MG/ML SYR IV PRN (08:19)
[2021-10-10] MEDS ORDERED: ONDANSETRON 4 MG/2 ML VIAL IV PRN (08:20)
--- NOTE | 2021-10-10 08:21 | P.HP ---
Certification for Inpatient Patient admitted to: Inpatient With expected LOS: >2 Midnights Practitioner: I am a practitioner with admitting privileges, knowledge of patient current condition, hospital course, and medical plan of care. Services: Services provided to patient in accordance with Admission requirements found in Title 42 Section 412.3 of the Code of Federal Regulations Patient History Date of Service: 10/10/21 Reason for admission: intractable back pain, hypokalemia History of Present Illness: 71yo F, PMH: NIDDM2, ankylosing spondylitis with chronic back pain, hy pertension, disc herniation, lymphedema, history of breast cancer s/p chemo and mastectomy, fibromyalgia Presents to the ED due to 4-5 days of progressively worsening back pain. Pain is alleviated by nothing. Patient has chronic back pain and takes Ledbetter tens up to 4 times a day, and this has not provided any relief. Pain worsened after patient felt like she had exerted herself to hold her up from falling. Pain has progressed to where she has greatly limited mobility, unable to walk. Denies any new numbness/tingling in lower extremities, no new/worsening bowel/bladder incontinence, no fever/chills, no rashes. Patient also dealing with stress at home, recently passed a few days ago while on home hospice. In the ED, she was noted to be in significant pain and found to be hypokalemic. ED physician requests admission for further management. Allergies morphine Allergy (Verified 10/10/21 09:25) Hives Home Medications: Diazepam [Valium] 10 mg PO QID 12/18/14 Furosemide [Lasix*] 40 mg PO TID PRN 12/18/14 Gabapentin [Neurontin] 600 mg PO TID 12/18/14 Glipizide [Glipizide ER] 10 mg PO BID 12/18/14 Hydrocodone Bit/Acetaminophen [Hydrocodon-Acetaminophn 10-325] 1 each PO Q4HP PRN 12/18/14 Metformin ER [Glucophage ER*] 1,000 mg PO BID 12/18/14 Metoprolol Tartrate [Lopressor*] 100 mg PO BID 12/18/14 Nitroquick 0.4 mg TOP PRN PRN 12/18/14 Quinapril HCl [Accupril] 40 mg PO DAILY 12/18/14 Quinine Sulfate 324 mg PO BEDTIME 12/18/14 Temazepam [Restoril] 30 mg PO BEDTIME 12/18/14 gemfibroziL [Lopid*] 600 mg PO BID 12/18/14 predniSONE [Prednisone*] 10 mg PO DAILY PRN 12/18/14 Pantoprazole [Protonix Tab*] 40 mg PO DAILY #30 tab 12/19/14 carisoprodoL [Soma*] 350 mg PO QID #120 tab 12/19/14 - Past Medical/Surgical History Diabetic: Yes -: breast cancer -: chemo -: lupus -: fibromyalgia -: HTN -: NIDDM -: hyperlipidema -: herniated disk -: ankylosing spondylitis -: COPD -: precancerous polyps in colon -: R mastectomy -: rods & pins in R arm -: hysterectomy -: dariela -: bladder suspension -: L ear sx x2 -: R lung base lobectomy - Family History Mother -: Heart disease, Hypertension, GI disease, Cancer, Kidney disease Father -: Heart disease, Hypertension, Cancer, Liver disease Sister -: Diabetes Brother -: Cancer - Social History Smoking Status: Current every day smoker Alcohol use: No CD- Drugs: No Caffeine use: Yes Place of Residence: Home Review of Systems 10-point ROS is otherwise unremarkable Physical Examination - Physical Exam General: Alert, Oriented x3, Moderate distress HEENT: EOMI, Sclerae nonicteric Neck: No LAD Respiratory: Clear to auscultation bilaterally, Normal air movement Cardiovascular: Regular rate/rhythm, Edema (LLE>RLE) Gastrointestinal: Soft and benign, Non-distended, No tenderness Musculoskeletal: Tenderness (throughout lumbar region and sacrum bilaterally. worse on right. tender along muscles) Integumentary: No significant lesion Neurological: Normal speech, Normal strength at 5/5 x4 extr, Sensation intact, Cranial nerves 3-12 intact, Normal affect - Studies Laboratory Data (last 24 hrs) 10/10/21 04:45: Sodium 139, Potassium 2.4 L*, BUN 4 L, Creatinine 0.40 L, Glucose 165 H, Total Bilirubin 0.3, AST 11 L, ALT 16, Alkaline Phosphatase 86, Lipase 34 L 10/10/21 04:45: WBC 8.1, Hgb 12.5, Hct 37.5, Plt Count 330 Assessment and Plan - Advance Directives Does patient have a Living Will: No Does patient have a Durable POA for Healthcare: Yes Physician Review Additional Text: Problem List intractable back pain, acute on chronic Hypokalemia h/o ankylosing spondylitis chronic back pain NIDDM2 fibromyalgia h/o breast cancer s/p mastectomy/chemo replace K+, magnesium pending recheck later today diet as tolerated pain medication as needed, continue home regimen. [place] [employer] reviewed, no red flags IV for breakthrough. add flexeril suspect muscle spasms / strain after heavy lifting - bracing husbands weight at home no neuro findings on exam / no back pain red flags at this time PT consulted suspect patient will need prolonged pain control and PT VTE: lovenox Code: full Dispo: may need SNF/rehab, ~2 days Time Spent Managing Pts Care (In Minutes): 75
[2021-10-10] MEDS: ENOXAPARIN 40 MG/0.4 ML SQ SCH (09:00)
[2021-10-10] MEDS ORDERED: CYCLOBENZAPRINE 10 MG TAB ONE (09:36)
[2021-10-10] MEDS ORDERED: ENOXAPARIN 40 MG/0.4 ML SQ ONE (09:37)
[2021-10-10] MEDS: CYCLOBENZAPRINE 10 MG TAB PO PRN ×2 (09:38→22:07)
--- NOTE | 2021-10-10 10:57 | EKG ---
Test Date: 2021-10-10 Test Time: 06:57:44 Child Care Coordinator: MEASUREMENT RESULTS: Intervals: Rate: 81 TX: 178 QRSD: 72 QT: 420 QTc: 487 [place]: P: 83 TX: 178 QRS: 73 T: 57 INTERPRETIVE STATEMENTS: Sinus rhythm with premature supraventricular complexes Otherwise normal ECG Compared to ECG 12/19/2014 06:38:49 Atrial premature complex(es) now present Electronically Signed On 10-10-21 10:57:07 CDT by Huseyin Talavera
[2021-10-10] MEDS ORDERED: HYDROCODONE/APAP 10/325 TAB ONE ×2 (11:13→17:57)
[2021-10-10] MEDS: INSULIN -REGULAR HUMAN 50 UNIT/0.5 ML ML SQ SCH ×3 (11:21→22:07)
[2021-10-10] MEDS: HYDROCODONE/APAP 10/325 TAB PO PRN ×3 (11:22→22:08)
--- NOTE | 2021-10-10 11:39 | RAD REPORT ---
EXAM DESCRIPTION: CT - Abdomen Pelvis Wo Contrast - 10/10/2021 6:40 am CLINICAL HISTORY: Flank Pain COMPARISON: None. TECHNIQUE: CT ABDOMEN PELVIS WITHOUT IV CONTRAST on 10/10/2021 12:00 AM CDT This exam was performed according to our departmental dose-optimization program, which includes autom ated exposure control, adjustment of the mA and/or kV according to patient size and/or use of iterati ve reconstruction technique. FINDINGS: Lower lungs are clear. Abdomen: There are multiple calcified granulomas within the liver and the spleen. There is no biliary dilatation. Cholecystectomy was performed. Pancreas is normal in appearance. Adrenal glands are norm al. Upper pole left renal cyst measures 4.7 cm. There is no hydronephrosis. Abdominal aorta is mildly calcified without aneurysm. There is no free air. There is no retroperitone al adenopathy. Pelvis: There is no bowel obstruction. Urinary bladder is unremarkable. There is trace free pelvic fl uid. Hysterectomy was performed. Appendix is not well seen. Skeleton: There are no acute osseous findings. No suspicious bony lesions. IMPRESSION: No definite acute process. No obstructive uropathy. Electronically signed by: Gómez Mcclure MD 10/10/2021 6:07 AM CDT Due to temporary technical issues with the PACS/Fluency reporting system, reports are being signed by the in house radiologist without review as a courtesy to ensure prompt reporting. The interpreting r adiologist is fully responsible for the content of the report.
[2021-10-10] MEDS ORDERED: MORPHINE 4 MG/ML SYR ONE (15:17)
[2021-10-10 15:41] LABS: BUN Blood Urea Nitrogen 7 mg/dL (7-18); Bicarbonate 29 mmol/L (21-32); Glucose Level 275 mg/dL (74-106); Magnesium 1.5 mg/dL (1.8-2.4); Potassium 3.6 mmol/L (3.5-5.1); Sodium Level 139 mmol/L (136-145)
[2021-10-10] MEDS ORDERED: Magnesium Sulfate 2gm IVPB 2 G/50 ML BAG IV ONE ×2 (16:00→17:57)
[2021-10-10] MEDS ORDERED: INSULIN -REGULAR HUMAN 50 UNIT/0.5 ML ML ONE (18:16)
--- NOTE | 2021-10-10 22:14 | P.CNS ---
Date of Consult: 10/10/21 Reason for Consult: Hypokalemia Requesting Physician: Ghassan Chamberlain Chief Complaint: intractable back pain, hypokalemia History of Present Illness: 71yo F, PMH: NIDDM2, ankylosing spondylitis with chronic back pain, hypertension, disc herniation, lymphedema, history of breast cancer s/p chemo and mastectomy, fibromyalgia Presents to the ED due to 4-5 days of progressively worsening back pain. Pain is alleviated by nothing. Patient has chronic back pain and takes [place] tens up to 4 times a day, and this has not provided any relief. Pain worsened after patient felt like she had exerted herself to hold her up from falling. Pain has progressed to where she has greatly limited mobility, unable to walk. Denies any new numbness/tingling in lower extremities, no new/worsening bowel/bladder incontinence, no fever/chills, no rashes. Patient also dealing with stress at home, recently passed a few days ago while on home hospice. In the ED, she was noted to be in significant pain and found to be hypokalemic. 04:41 This 71 yrs old Female presents to ER via EMS with complaints of Back Pain. mh7 04:41 The patient complains of pain in the left flank and right flank. The pain does not mh7 radiate. Onset: The symptoms/episode began/occurred 4 day(s) ago. Modifying factors: The symptoms are alleviated by nothing. the symptoms are aggravated by movement, palpation/percussion. Associated signs and symptoms: Pertinent negatives: diarrhea, dizziness, dysuria, fever, urinary frequency, headache, hematuria, nausea, pain radiating to the lower extremities, vomiting. Severity of pain: At its worst the pain was moderate 3 day(s) ago, in the emergency department the pain is unchanged. Allergies morphine Allergy (Verified 10/10/21 09:25) Hives Home medications list reviewed: Yes Home Medications: Diazepam [Valium] 5 mg PO DAILY 12/18/14 Furosemide [Lasix*] 40 mg PO BID 12/18/14 Gabapentin [Neurontin] 600 mg PO TID 12/18/14 Glipizide [Glipizide ER] 10 mg PO BID 12/18/14 Hydrocodone Bit/Acetaminophen [Hydrocodon-Acetaminophn 10-325] 1 each PO Q4HP PRN 12/18/14 Metformin ER [Glucophage ER*] 1,000 mg PO BID 12/18/14 Metoprolol Tartrate [Lopressor*] 100 mg PO BID 12/18/14 Nitroquick 0.4 mg SL PRN PRN 12/18/14 Quinapril HCl [Accupril] 40 mg PO DAILY 12/18/14 Temazepam [Restoril] 30 mg PO BEDTIME 12/18/14 gemfibroziL [Lopid*] 600 mg PO BID 12/18/14 Promethazine HCl 25 mg PO BID 10/10/21 Ranitidine HCl [Acid Bleaching Supervisor] 300 mg PO DAILY 10/10/21 - Past Medical/Surgical History Diabetic: Yes -: breast cancer -: chemo -: lupus -: fibromyalgia -: HTN -: NIDDM -: hyperlipidema -: herniated disk -: ankylosing spondylitis -: COPD -: precancerous polyps in colon -: R mastectomy -: rods & pins in R arm -: hysterectomy -: darilea -: bladder suspension -: L ear sx x2 -: R lung base lobectomy - Family History Mother Medical History: Heart disease, Hypertension, GI disease, Cancer, Kidney disease Father Medical History: Heart disease, Hypertension, Cancer, Liver disease Sister Medical History: Diabetes Brother Medical History: Cancer - Social History Alcohol use: No CD- Drugs: No Caffeine use: Yes Place of Residence: Home Review of Systems 10-point ROS is otherwise unremarkable Cardiovascular: Edema Musculoskeletal: Back Pain Neurological: Weakness Physical Examination Temp Pulse Resp BP Pulse Ox 97.2 F 72 16 110/75 95 10/10/21 16:00 10/10/21 12:00 10/10/21 18:00 10/10/21 16:00 10/10/21 18:00 General: Oriented x3, Cooperative HEENT: Atraumatic Neck: Supple Respiratory: Clear to auscultation bilaterally Cardiovascular: Regular rate/rhythm, Edema Gastrointestinal: Soft and benign, No guarding Musculoskeletal: No clubbing, No contractures Integumentary: No rashes, No cyanosis Neurological: Normal speech Laboratory Data (last 24 hrs) 10/10/21 15:17: Sodium 139, Potassium 3.6, BUN 7, Creatinine 0.48 L, Glucose 275 H, Magnesium 1.5 L 10/10/21 04:45: Magnesium 1.5 L 10/10/21 04:45: Sodium 139, Potassium 2.4 L*, BUN 4 L, Creatinine 0.40 L, Glucose 165 H, Total Bilirubin 0.3, AST 11 L, ALT 16, Alkaline Phosphatase 86, Lipase 34 L 10/10/21 04:45: WBC 8.1, Hgb 12.5, Hct 37.5, Plt Count 330 Imagings Data: EXAM DESCRIPTION: CT - Abdomen Pelvis Wo Contrast - 10/10/2021 6:40 am CLINICAL HISTORY: Flank Pain COMPARISON: None. TECHNIQUE: CT ABDOMEN PELVIS WITHOUT IV CONTRAST on 10/10/2021 12:00 AM CDT This exam was performed according to our departmental dose-optimization program, which includes automated exposure control, adjustment of the mA and/or kV according to patient size and/or use of iterative reconstruction technique. FINDINGS: Lower lungs are clear. Abdomen: There are multiple calcified granulomas within the liver and the spleen. There is no biliary dilatation. Cholecystectomy was performed. Pancreas is normal in appearance. Adrenal glands are normal. Upper pole left renal cyst measures 4.7 cm. There is no hydronephrosis. Abdominal aorta is mildly calcified without aneurysm. There is no free air. There is no retroperitoneal adenopathy. Pelvis: There is no bowel obstruction. Urinary bladder is unremarkable. There is trace free pelvic fluid. Hysterectomy was performed. Appendix is not well seen. Skeleton: There are no acute osseous findings. No suspicious bony lesions. IMPRESSION: No definite acute process. No obstructive uropathy. Conclusions/Impression: Hypokalemia -Replete potassium -Start spironolactone BID Hypomagnesemia -Replete with IV mag HTN -Monitor BP LE Edema -Low sodium diet -Start spironolactone BID DM II -RISS Moderate malnutrition -Start protein supplementation Case discussed with Dr. Chamberlain Thank you kindly for the consultation
[2021-10-11] MEDS: SPIRONOLACTONE 25 MG TABLET PO SCH ×3 (00:13→19:57)
[2021-10-11] MEDS: HYDROCODONE/APAP 10/325 TAB PO PRN ×4 (01:55→17:42)
[2021-10-11 05:12] LABS: Absolute Lymphocytes (CBC) 2.5 K/uL (0.7-4.9); Hematocrit 35.2 % (36.0-45.0); Lymphocytes % 31.9 % (15.3-44.8); MPV 7.1 fL (7.6-11.3); RBC Red Blood Cell Count 3.99 M/uL (3.86-4.86)
[2021-10-11 05:35] LABS: BUN Blood Urea Nitrogen 6 mg/dL (7-18); Bicarbonate 29 mmol/L (21-32); Glucose Level 103 mg/dL (74-106); Magnesium 1.9 mg/dL (1.8-2.4); NT PRO-BNP 1619 pg/mL (<125); Phosphorus 2.4 mg/dL (2.5-4.9); Sodium Level 142 mmol/L (136-145); Uric Acid 4.6 mg/dL (2.6-6.0)
[2021-10-11 05:51] LABS: Potassium 2.8 mmol/L (3.5-5.1)
--- NOTE | 2021-10-11 06:02 | P.PN ---
Date of Service: 10/11/21 Subjective: Pain medication increased overnight. Patient feels like she can move a little bit better, still on quite a bit of pain No new neuro symptoms, no numbness/tingling, no incontinence Hypokalemic again this morning ROS: 10 point ROS as noted above, otherwise negative Physical exam General: Alert, Oriented x3, uncomfortable appearing HEENT: EOMI, Sclerae nonicteric Respiratory: mild crackles bilaterally, nonlabored on RA Cardiovascular: Regular rate/rhythm, Edema (LLE>RLE) Gastrointestinal: Soft and benign, Non-distended, No tenderness Musculoskeletal: Tenderness (throughout lumbar region and sacrum bilaterally. worse on right and SI area. tender along muscles) no tenderness along spinal palpation Neurological: Normal speech, Normal strength at 5/5 x4 extr, Sensation intact, Cranial nerves 3-12 intact, Normal affect Problem List intractable back pain, acute on chronic Hypokalemia h/o ankylosing spondylitis chronic back pain NIDDM2 fibromyalgia h/o breast cancer s/p mastectomy/chemo replace K+, unclear etiology patient was on furosemide at home nephrho consulted, started spironolactone diet as tolerated pain medication as needed. [facility] reviewed, no red flags IV for breakthrough. Continue flexeril suspect muscle spasms / strain after heavy lifting - bracing husbands weight at home no neuro findings on exam / no back pain red flags at this time No further improvement, consider MRI tomorrow, patient currently would not be able to lay flat to complete PT consulted -recommend inpatient rehab consult suspect patient will need prolonged pain control and PT VTE: lovenox Code: full Dispo: Inpatient rehab consult Time Spent Managing Pts Care (In Minutes): 35
[2021-10-11] MEDS ORDERED: POTASSIUM 25 MEQ EFFERV TAB PO ONE (06:16)
[2021-10-11] MEDS: CYCLOBENZAPRINE 10 MG TAB PO PRN ×3 (06:38→22:17)
[2021-10-11] MEDS: INSULIN -REGULAR HUMAN 50 UNIT/0.5 ML ML SQ SCH ×4 (07:30→19:59)
[2021-10-11] MEDS ORDERED: POTASSIUM PHOS IN 0.9 % NACL 15 MMOL/250 ML BAG IV ONE (07:34)
[2021-10-11] MEDS: DOCUSATE NA 100 MG CAP PO SCH ×2 (07:45→19:57)
[2021-10-11] MEDS: VITAMIN D 5,000 UNIT CAP PO SCH (07:45)
[2021-10-11] MEDS: ENOXAPARIN 40 MG/0.4 ML SQ SCH (07:45)
[2021-10-11] MEDS: LACTOSE-REDUCED FOOD 330 ML LIQUID PO SCH ×3 (07:51→21:00)
[2021-10-11] MEDS ORDERED: POTASSIUM CL SA 10 MEQ TAB PO ONE (09:43)
[2021-10-11] MEDS: HYDROMORPHONE HCL 0.5 MG/0.5 ML INJ IV PRN ×3 (15:33→23:48)
--- NOTE | 2021-10-11 15:49 | RAD REPORT ---
EXAM DESCRIPTION: Lamin Single View10/11/2021 3:33 pm CLINICAL HISTORY: Shortness breath COMPARISON: 2018 FINDINGS: Mild bilateral pulmonary interstitial lung opacities appear chronic. The lungs appear clear of acute infiltrate. The heart is normal size IMPRESSION: No acute abnormalities displayed
--- NOTE | 2021-10-11 21:18 | P.PN ---
Date of Service: 10/11/21 Vital Signs Temp Pulse Resp BP Pulse Ox 98.6 F 96 H 19 157/73 H 93 10/11/21 20:00 10/11/21 20:00 10/11/21 19:59 10/11/21 20:00 10/11/21 20:00 Medications Hydrocodone Bitart/Acetaminophen (Hydrocodone/Apap 10/325 Tab) 1 tab PO Q4H PRN PRN Reason: Pain scale 8-10 (Severe) Last Admin: 10/11/21 17:42 Dose: 1 tab Documented by: Cholecalciferol (Vitamin D 5,000 Unit Cap) 5,000 unit PO DAILY [facility] Last Admin: 10/11/21 07:45 Dose: 5,000 unit Documented by: Cyclobenzaprine HCl (Cyclobenzaprine 10 Mg Tab) 10 mg PO TIDP PRN PRN Reason: MUSCLE SPASMS Last Admin: 10/11/21 14:02 Dose: 10 mg Documented by: Docusate Sodium (Docusate Na 100 Mg Cap) 100 mg PO BID [facility] Last Admin: 10/11/21 19:57 Dose: 100 mg Documented by: Enoxaparin Sodium (Enoxaparin 40 Mg/0.4 Ml) 40 mg SQ DAILY [facility] Last Admin: 10/11/21 07:45 Dose: 40 mg Documented by: Hydromorphone HCl (Hydromorphone Hcl 0.5 Mg/0.5 Ml Inj) 0.5 mg IV Q4H PRN PRN Reason: Pain scale 8-10 (Severe) Last Admin: 10/11/21 19:59 Dose: 0.5 mg Documented by: Insulin Human Regular (Insulin -Regular Human 50 Unit/0.5 Ml Ml) 0 unit SQ [facility]; Protocol Last Admin: 10/11/21 19:59 Dose: Not Given Documented by: Ondansetron HCl (Ondansetron 4 Mg/2 Ml Vial) 4 mg IV Q6HP PRN PRN Reason: NAUSEA / VOMITING Last Admin: 10/10/21 15:46 Dose: 4 mg Documented by: Sodium Chloride (Flush Normal Saline 10 Ml) 10 ml IV BID [facility] Last Admin: 10/11/21 19:58 Dose: 10 ml Documented by: Spironolactone (Spironolactone 25 Mg Tablet) 25 mg PO BID [facility] Last Admin: 10/11/21 19:57 Dose: 25 mg Documented by: Lab Results (last 24 hrs) 10/10/21 04:34: Urine RBC Cancelled, Urine WBC Cancelled, Ur Squamous Epith Cells Cancelled, Ur Urothelial Cells Cancelled, Calcium Oxalate Crystal Cancelled, Uric Acid Crystals Cancelled, Triple Phos Crystals Cancelled, Other Crystals Cancelled, Amorphous Sediment Cancelled, Glitter Cells Cancelled, Urine Bacteria Cancelled, Hyaline Casts Cancelled, Fine Granular Casts Cancelled, Coarse Granular Casts Cancelled, Waxy Casts Cancelled, RBC Casts Cancelled, WBC Casts Cancelled, Urine Mucus Cancelled, Urine Other Cancelled, Urine Trichomonas Cancelled, Urine Yeast Cancelled, Ur Yeast w Hyphae Cancelled, Urine Yeast (Budding) Cancelled, Urine Sperm Cancelled, Urine Culture Reflexed Cancelled, Urine Total Volume Cancelled Assessment/ Plan: Nephrology No dyspnea No chest pain Back pain No acute events overnight Vitals, medications, blood work and imaging reviewed in the chart. General: Oriented x3, Cooperative HEENT: Atraumatic Neck: Supple Respiratory: Clear to auscultation bilaterally Cardiovascular: Regular rate/rhythm, Edema Gastrointestinal: Soft and benign, No guarding Musculoskeletal: No clubbing, No contractures Integumentary: No rashes, No cyanosis Neurological: Normal speech Laboratory Data (last 24 hrs) 10/10/21 15:17: Sodium 139, Potassium 3.6, BUN 7, Creatinine 0.48 L, Glucose 275 H, Magnesium 1.5 L 10/10/21 04:45: Magnesium 1.5 L 10/10/21 04:45: Sodium 139, Potassium 2.4 L*, BUN 4 L, Creatinine 0.40 L, Glucose 165 H, Total Bilirubin 0.3, AST 11 L, ALT 16, Alkaline Phosphatase 86, Lipase 34 L 10/10/21 04:45: WBC 8.1, Hgb 12.5, Hct 37.5, Plt Count 330 Imagings Data: EXAM DESCRIPTION: CT - Abdomen Pelvis Wo Contrast - 10/10/2021 6:40 am CLINICAL HISTORY: Flank Pain COMPARISON: None. TECHNIQUE: CT ABDOMEN PELVIS WITHOUT IV CONTRAST on 10/10/2021 12:00 AM CDT This exam was performed according to our departmental dose-optimization program, which includes automated exposure control, adjustment of the mA and/or kV according to patient size and/or use of iterative reconstruction technique. FINDINGS: Lower lungs are clear. Abdomen: There are multiple calcified granulomas within the liver and the spleen. There is no biliary dilatation. Cholecystectomy was performed. Pancreas is normal in appearance. Adrenal glands are normal. Upper pole left renal cyst measures 4.7 cm. There is no hydronephrosis. Abdominal aorta is mildly calcified without aneurysm. There is no free air. There is no retroperitoneal adenopathy. Pelvis: There is no bowel obstruction. Urinary bladder is unremarkable. There is trace free pelvic fluid. Hysterectomy was performed. Appendix is not well seen. Skeleton: There are no acute osseous findings. No suspicious bony lesions. IMPRESSION: No definite acute process. No obstructive uropathy. Conclusions/Impression: Hypokalemia -Replete potassium -Continue spironolactone BID Hypomagnesemia -Replete with IV mag prn HypoPO4 -Replete PO4 HTN -Monitor BP LE Edema -Low sodium diet -Continue spironolactone BID DM II -RISS Moderate malnutrition -Continue protein supplementation Case discussed with Dr. Chamberlain
[2021-10-12] MEDS: HYDROCODONE/APAP 10/325 TAB PO PRN ×3 (00:27→14:33)
[2021-10-12] MEDS: HYDROMORPHONE HCL 0.5 MG/0.5 ML INJ IV PRN ×4 (03:16→22:20)
[2021-10-12] MEDS ORDERED: DIAZEPAM 5 MG TABLET PO PRN (06:12)
--- NOTE | 2021-10-12 06:12 | P.PN ---
Date of Service: 10/12/21 Subjective: improving, moving around better, but requiring high levels of pain medication / IV feels slight worsening of urinary incontinence will try for MRI today ROS: 10 point ROS as noted above, otherwise negative Physical exam General: Alert, Oriented x3, wincing with repositioning HEENT: EOMI, Sclerae nonicteric Respiratory: mild crackles bilaterally, nonlabored on RA Cardiovascular: Regular rate/rhythm, Edema (LLE>RLE) Gastrointestinal: Soft and benign, Non-distended, No tenderness Musculoskeletal: Tenderness (throughout lumbar region and sacrum bilaterally. worse on right and SI area. tender along muscles) no tenderness along spinal palpation Neurological: Normal speech, Cranial nerves 3-12 intact, Normal affect Problem List intractable back pain, acute on chronic Hypokalemia h/o ankylosing spondylitis chronic back pain NIDDM2 fibromyalgia h/o breast cancer s/p mastectomy/chemo replace K+, unclear etiology, patient was on furosemide at home nephro consulted, started spironolactone diet as tolerated pain medication as needed. BEE KEEPER reviewed, no red flags IV for breakthrough. give extra dose for MRI today MRI lumbar / sacrum to eval for cord compression, herniated disc, compression fractures Continue flexeril suspect muscle spasms / strain after heavy lifting - bracing husbands weight at home PT consulted -recommend inpatient rehab consult improving with PT, patient appears more comfortable VTE: lovenox Code: full Dispo: Inpatient rehab consult Time Spent Managing Pts Care (In Minutes): 35
[2021-10-12 06:45] LABS: Albumin 2.3 g/dL (3.4-5.0); BUN Blood Urea Nitrogen 5 mg/dL (7-18); Bicarbonate 30 mmol/L (21-32); Glucose Level 146 mg/dL (74-106); Magnesium 1.8 mg/dL (1.8-2.4); NT PRO-BNP 2015 pg/mL (<125); Phosphorus 2.6 mg/dL (2.5-4.9); Potassium 3.6 mmol/L (3.5-5.1); Sodium Level 142 mmol/L (136-145); Uric Acid 3.8 mg/dL (2.6-6.0)
[2021-10-12] MEDS: INSULIN -REGULAR HUMAN 50 UNIT/0.5 ML ML SQ SCH ×4 (07:30→20:51)
[2021-10-12] MEDS ORDERED: HYDROMORPHONE HCL 1 MG/ML INJ IV PRN (07:58)
[2021-10-12] MEDS: ASPIRIN EC 81 MG TAB PO SCH (08:06)
[2021-10-12] MEDS: DOCUSATE NA 100 MG CAP PO SCH ×2 (08:06→19:47)
[2021-10-12] MEDS: SPIRONOLACTONE 25 MG TABLET PO SCH ×2 (08:06→19:46)
[2021-10-12] MEDS: CYCLOBENZAPRINE 10 MG TAB PO PRN ×3 (08:06→20:52)
[2021-10-12] MEDS: METOPROLOL TAR 50 MG TAB PO SCH ×2 (08:10→19:48)
[2021-10-12] MEDS: ENOXAPARIN 40 MG/0.4 ML SQ SCH (08:10)
[2021-10-12] MEDS: VITAMIN D 5,000 UNIT CAP PO SCH (08:10)
[2021-10-12] MEDS ORDERED: QUINAPRIL HCL 40 MG PO SCH (09:00)
[2021-10-12] MEDS: LACTOSE-REDUCED FOOD 330 ML LIQUID PO SCH ×3 (09:00→21:00)
--- NOTE | 2021-10-12 13:13 | RAD REPORT ---
EXAM DESCRIPTION: MRI - Lumbar Spine Wo Con- 10/12/2021 12:52 pm CLINICAL HISTORY: acute on chronic pain, lumbosacral, SI Back pain, radiculopathy COMPARISON: Breast Bilat W Wo Cont dated 05/20/2018; Follow Up Breast Axilla Ltd dated 11/27/2017; 3D DIAG ROSE LT UNI W/CAD dated 11/27/2017; Abdomen Pelvis Wo Contrast dated 10/10/2021 FINDINGS: There is elevated T2/IR signal seen in the T12 vertebral body there is mild loss of verteb ral body height particularly along the inferior endplate with mild edema in the surrounding tissues. The conus medullaris terminates at a normal level. No thickening of the cauda equina or clumping of n erve roots seen. L1-2 level: Minimal posterior disc bulge. L2-3 level: Minimal posterior disc bulge and mild facet hypertrophy. L3-4 level: Mild posterior disc bulge mild facet and ligament flavum hypertrophy. L4-5 level: Mild to moderate posterior disc bulge mild facet and ligamentum flavum hypertrophy. Mild attenuation of the right lateral recess is seen. L5-S1 level: 5-6 mm central disc protrusion is seen with mild facet hypertrophy. IMPRESSION: Diminished T1 signal and elevated T2/IR signal is noted in the T12 vertebral body. This may be related to a mild osteoporotic compression fracture. Mild to moderate lower lumbar spondylosis is present.
--- NOTE | 2021-10-12 13:16 | RAD REPORT ---
EXAM DESCRIPTION: MRI - Sacrum/Coccyx Wo Cont - 10/12/2021 12:51 pm CLINICAL HISTORY: acute on chronic pain, lumbosacral, SI COMPARISON: NM-BONE IMAGING-WHOLE BODY dated 04/12/2013; MAMMO DIGITAL DIAG LT UNI WCAD dated 012; DIAG MAMMO UNI W CAD dated 09/26/2010; BREAST UNI ZOEY dated 09/26/2009; UNILATERAL MAMMOGRAM/FU da astrid 02/15/2009; BREAST UNI ZOEY dated 02/15/2009; MR BREAST UNI W WO CONTRAST dated 02/28/2009; NM-BONE IM AGING-WHOLE BODY dated 05/09/2009 FINDINGS: Diminished T1 signal and elevated T2/IR signal is seen in the inferior aspect of the right sacral ala. This is a nonspecific finding. No sacral insufficiency fractures seen. No soft tissue mass is seen. IMPRESSION: Small area of diminished T1 elevated T2/IR signal inferior right sacral ala. Given this finding and the MRI lumbar spine findings at T12, recommend nuclear medicine bone scan further evalua tion.
[2021-10-12] MEDS: GABAPENTIN 300 MG CAP PO SCH (13:22)
[2021-10-13] MEDS: HYDROCODONE/APAP 10/325 TAB PO PRN ×3 (00:12→11:46)
[2021-10-13] MEDS: HYDROMORPHONE HCL 0.5 MG/0.5 ML INJ IV PRN (04:00)
[2021-10-13 04:33] VITALS: O2SAT 94
[2021-10-13 05:06] VITALS: BMI 32.3
[2021-10-13 05:06] LABS: Hematocrit 35.3 % (36.0-45.0); MPV 7.5 fL (7.6-11.3); RBC Red Blood Cell Count 3.97 M/uL (3.86-4.86)
[2021-10-13 05:42] LABS: Albumin 2.2 g/dL (3.4-5.0); BUN Blood Urea Nitrogen 8 mg/dL (7-18); Bicarbonate 28 mmol/L (21-32); Glucose Level 186 mg/dL (74-106); Phosphorus 3.1 mg/dL (2.5-4.9); Sodium Level 139 mmol/L (136-145)
[2021-10-13 05:43] LABS: Magnesium 1.8 mg/dL (1.8-2.4); Potassium 3.8 mmol/L (3.5-5.1)
--- NOTE | 2021-10-13 06:10 | P.PN ---
Date of Service: 10/13/21 Subjective: ROS: 10 point ROS as noted above, otherwise negative Physical exam General: Alert, Oriented x3, wincing with repositioning HEENT: EOMI, Sclerae nonicteric Respiratory: mild crackles bilaterally, nonlabored on RA Cardiovascular: Regular rate/rhythm, Edema (LLE>RLE) Gastrointestinal: Soft and benign, Non-distended, No tenderness Musculoskeletal: Tenderness (throughout lumbar region and sacrum bilaterally. worse on right and SI area. tender along muscles) no tenderness along spinal palpation Neurological: Normal speech, Cranial nerves 3-12 intact, Normal affect Problem List intractable back pain, acute on chronic Hypokalemia h/o ankylosing spondylitis chronic back pain NIDDM2 fibromyalgia h/o breast cancer s/p mastectomy/chemo replace K+, unclear etiology, patient was on furosemide at home nephro consulted, started spironolactone diet as tolerated pain medication as needed. DY[employer]ANCER reviewed, no red flags IV for breakthrough. give extra dose for MRI today MRI lumbar / sacrum to eval for cord compression, herniated disc, compression fractures Continue flexeril suspect muscle spasms / strain after heavy lifting - bracing husbands weight at home PT consulted -recommend inpatient rehab consult improving with PT, patient appears more comfortable VTE: lovenox Code: full Dispo: Inpatient rehab consult Time Spent Managing Pts Care (In Minutes): 35
--- NOTE | 2021-10-13 06:43 | P.PN ---
Date of Service: 10/12/21 Vital Signs Temp Pulse Resp BP Pulse Ox 97.2 F 90 20 156/83 H 92 10/13/21 04:00 10/13/21 04:00 10/13/21 06:19 10/13/21 04:00 10/13/21 06:19 Medications Hydrocodone Bitart/Acetaminophen (Hydrocodone/Apap 10/325 Tab) 1 tab PO Q4H PRN PRN Reason: Pain scale 8-10 (Severe) Last Admin: 10/13/21 06:19 Dose: 1 tab Documented by: Aspirin (Aspirin Ec 81 Mg Tab) 81 mg PO DAILY [facility] Last Admin: 10/12/21 08:06 Dose: 81 mg Documented by: Cholecalciferol (Vitamin D 5,000 Unit Cap) 5,000 unit PO DAILY [facility] Last Admin: 10/12/21 08:10 Dose: 5,000 unit Documented by: Cyclobenzaprine HCl (Cyclobenzaprine 10 Mg Tab) 10 mg PO TIDP PRN PRN Reason: MUSCLE SPASMS Last Admin: 10/12/21 20:52 Dose: 10 mg Documented by: Diazepam (Diazepam 5 Mg Tablet) 5 mg PO DAILY PRN PRN Reason: ANXIETY Docusate Sodium (Docusate Na 100 Mg Cap) 100 mg PO BID [facility] Last Admin: 10/12/21 19:47 Dose: 100 mg Documented by: Enoxaparin Sodium (Enoxaparin 40 Mg/0.4 Ml) 40 mg SQ DAILY [facility] Last Admin: 10/12/21 08:10 Dose: 40 mg Documented by: Gabapentin (Gabapentin 300 Mg Cap) 600 mg PO NOON [facility] Last Admin: 10/12/21 13:22 Dose: 600 mg Documented by: Home Med (Quinapril Hcl [Accupril]) 40 mg PO DAILY [facility] Last Admin: 10/12/21 09:00 Dose: Not Given Documented by: Insulin Human Regular (Insulin -Regular Human 50 Unit/0.5 Ml Ml) 0 unit SQ [facility]; Protocol Last Admin: 10/12/21 20:51 Dose: 2 unit Documented by: Metoprolol Tartrate (Metoprolol Tar 50 Mg Tab) 50 mg PO BID [facility] Last Admin: 10/12/21 19:48 Dose: 50 mg Documented by: Ondansetron HCl (Ondansetron 4 Mg/2 Ml Vial) 4 mg IV Q6HP PRN PRN Reason: NAUSEA / VOMITING Last Admin: 10/10/21 15:46 Dose: 4 mg Documented by: Sodium Chloride (Flush Normal Saline 10 Ml) 10 ml IV BID [facility] Last Admin: 10/12/21 19:48 Dose: 10 ml Documented by: Spironolactone (Spironolactone 25 Mg Tablet) 25 mg PO BID [facility] Last Admin: 10/12/21 19:46 Dose: 25 mg Documented by: Assessment/ Plan: Nephrology No dyspnea No chest pain Persistent back pain LE Edema No acute events overnight Vitals, medications, blood work and imaging reviewed in the chart. General: Oriented x3, Cooperative HEENT: Atraumatic Neck: Supple Respiratory: Clear to auscultation bilaterally Cardiovascular: Regular rate/rhythm, Edema Gastrointestinal: Soft and benign, No guarding Musculoskeletal: No clubbing, No contractures Integumentary: No rashes, No cyanosis Neurological: Normal speech Laboratory Data (last 24 hrs) 10/10/21 15:17: Sodium 139, Potassium 3.6, BUN 7, Creatinine 0.48 L, Glucose 275 H, Magnesium 1.5 L 10/10/21 04:45: Magnesium 1.5 L 10/10/21 04:45: Sodium 139, Potassium 2.4 L*, BUN 4 L, Creatinine 0.40 L, Glucose 165 H, Total Bilirubin 0.3, AST 11 L, ALT 16, Alkaline Phosphatase 86, Lipase 34 L 10/10/21 04:45: WBC 8.1, Hgb 12.5, Hct 37.5, Plt Count 330 Imagings Data: EXAM DESCRIPTION: CT - Abdomen Pelvis Wo Contrast - 10/10/2021 6:40 am CLINICAL HISTORY: Flank Pain COMPARISON: None. TECHNIQUE: CT ABDOMEN PELVIS WITHOUT IV CONTRAST on 10/10/2021 12:00 AM CDT This exam was performed according to our departmental dose-optimization program, which includes automated exposure control, adjustment of the mA and/or kV according to patient size and/or use of iterative reconstruction technique. FINDINGS: Lower lungs are clear. Abdomen: There are multiple calcified granulomas within the liver and the spleen. There is no biliary dilatation. Cholecystectomy was performed. Pancreas is normal in appearance. Adrenal glands are normal. Upper pole left renal cyst measures 4.7 cm. There is no hydronephrosis. Abdominal aorta is mildly calcified without aneurysm. There is no free air. There is no retroperitoneal adenopathy. Pelvis: There is no bowel obstruction. Urinary bladder is unremarkable. There is trace free pelvic fluid. Hysterectomy was performed. Appendix is not well seen. Skeleton: There are no acute osseous findings. No suspicious bony lesions. IMPRESSION: No definite acute process. No obstructive uropathy. Conclusions/Impression: Hypokalemia -Replete potassium prn -Increase spironolactone 50mg BID Hypomagnesemia -Replete with IV mag prn HypoPO4 -Replete PO4 HTN -Quinapril started LE Edema -Low sodium diet -Continue spironolactone BID DM II -RISS Moderate malnutrition -Continue protein supplementation Case discussed with Dr. Chamberlain
[2021-10-13] MEDS: INSULIN -REGULAR HUMAN 50 UNIT/0.5 ML ML SQ SCH ×2 (07:11→12:28)
[2021-10-13] MEDS: ASPIRIN EC 81 MG TAB PO SCH (08:20)
[2021-10-13] MEDS: ENOXAPARIN 40 MG/0.4 ML SQ SCH (08:20)
[2021-10-13] MEDS: LACTOSE-REDUCED FOOD 330 ML LIQUID PO SCH ×2 (08:21→13:27)
[2021-10-13] MEDS: METOPROLOL TAR 50 MG TAB PO SCH (08:21)
[2021-10-13] MEDS: DOCUSATE NA 100 MG CAP PO SCH (08:21)
[2021-10-13] MEDS: VITAMIN D 5,000 UNIT CAP PO SCH (08:22)
[2021-10-13] MEDS ORDERED: lisinopriL 20 MG TAB PO SCH (09:00)
[2021-10-13] MEDS ORDERED: SPIRONOLACTONE 25 MG TABLET PO SCH (09:00)
[2021-10-13] MEDS: GABAPENTIN 300 MG CAP PO SCH (11:47)
[2021-10-13 12:11] VITALS: BP 177/86; TEMP 97.3
[2021-10-13] MEDS: CYCLOBENZAPRINE 10 MG TAB PO PRN (13:26)
--- NOTE | 2021-10-13 14:19 | P.DS ---
Admission Date: 10/10/21 Discharge Date: 10/13/21 Disposition: TRANSFER TO INPATIENT REHAB Discharge Condition: FAIR Reason for Admission: intractable back pain, hypokalemia Procedures: CT Abd/pelvis: FINDINGS: Lower lungs are clear. Abdomen: There are multiple calcified granulomas within the liver and the spleen. There is no biliary dilatation. Cholecystectomy was performed. Pancreas is normal in appearance. Adrenal glands are normal. Upper pole left renal cyst measures 4.7 cm. There is no hydronephrosis. Abdominal aorta is mildly calcified without aneurysm. There is no free air. There is no retroperitoneal adenopathy. Pelvis: There is no bowel obstruction. Urinary bladder is unremarkable. There is trace free pelvic fluid. Hysterectomy was performed. Appendix is not well seen. Skeleton: There are no acute osseous findings. No suspicious bony lesions. IMPRESSION: No definite acute process. No obstructive uropathy. MRI lumbar spine IMPRESSION: Diminished T1 signal and elevated T2/IR signal is noted in the T12 vertebral body. This may be related to a mild osteoporotic compression fracture. Mild to moderate lower lumbar spondylosis is present. MRI sacrum IMPRESSION: Small area of diminished T1 elevated T2/IR signal inferior right sacral ala. Given this finding and the MRI lumbar spine findings at T12, recommend non-emergent nuclear medicine bone scan further evaluation. Problem List intractable back pain, acute on chronic, secondary to muscle sprain/spasm, and osteoporotic compression fracture Hypokalemia secondary to loop diuretic use chronic back pain h/o ankylosing spondylitis NIDDM2 fibromyalgia h/o breast cancer s/p mastectomy/chemo Brief History of Present Illness: 71yo F, PMH: NIDDM2, ankylosing spondylitis with chronic back pain, hypertension, disc herniation, lymphedema, history of breast cancer s/p chemo and mastectomy, fibromyalgia Presents to the ED due to 4-5 days of progressively worsening back pain. Pain is alleviated by nothing. Patient has chronic back pain and takes [place] tens up to 4 times a day, and this has not provided any relief. Pain worsened after patient felt like she had exerted herself to hold her up from falling. Pain has progressed to where she has greatly limited mobility, unable to walk. Denies any new numbness/tingling in lower extremities, no new/worsening bowel/bladder incontinence, no fever/chills, no rashes. Patient also dealing with stress at home, recently passed a few days ago while on home hospice. In the ED, she was noted to be in significant pain and found to be hypokalemic. ED physician requests admission for further management. Hospital Course: Patient was treated with her home dose of [place] with IV medication as needed for breakthrough pain as well as Flexeril. Patient did not have any back pain red flags on admission, no no neuro findings. It was felt this is likely secondary to muscle strain and spasms. Physical therapy was consulted and worked with the patient. Patient had gradual improvement. Patient reported feeling like she was having a little bit more urinary incontinence than typical for her. She otherwise did not have any new neurologic findings on exam. An MRI of her lumbosacral region was obtained. No evidence of significant cord compression/herniations. Did note small diminished signal that is most consistent with mild osteoporotic compression fra in the T12 vertebral body, inferior right sacral ala. Unclear if these are old or new. May possibly be contributing to the patient's pain. Hypokalemia -Possibly secondary to urinary wasting with furosemide. Furosemide was replaced with spironolactone. Patient had improvement in more stability of her potassium levels. -She also continue to diurese well, with improvement of her lower extremity edema. The left lower extremity is chronically more edematous than the right. Social work/case management were consulted. Patient is discharged to inpatient rehab near her daughter. Vital Signs/Physical Exam: Temp Pulse Resp BP Pulse Ox 97.3 F 81 18 177/86 H 98 10/13/21 12:00 10/13/21 12:00 10/13/21 12:45 10/13/21 12:00 10/13/21 12:45 Physical exam General: Alert, Oriented x3, NAD HEENT: EOMI, Sclerae nonicteric Respiratory: nonlabored on room air Cardiovascular: Regular rate/rhythm, trace RLE edema, 1+ LLE edema Gastrointestinal: Soft and benign, Non-distended, No tenderness Musculoskeletal: Tenderness (throughout lumbar region and sacrum bilaterally. worse on right and SI area. tender along muscles) no tenderness with palpation of spinal processes Neurological: Normal speech, Cranial nerves 3-12 intact, Normal affect, distal sensation intact, str 5/5, b/l lower extremities ROM limited due to back pain Laboratory Data at Discharge: WBC 7.3 K/uL (4.3-10.9) 10/13/21 04:42 Hgb 11.8 g/dL (12.0-15.0) L 10/13/21 04:42 Hct 35.3 % (36.0-45.0) L 10/13/21 04:42 Plt Count 298 K/uL (152-406) 10/13/21 04:42 Sodium 139 mmol/L (136-145) 10/13/21 04:42 Potassium 3.8 mmol/L (3.5-5.1) 10/13/21 04:42 BUN 8 mg/dL (7-18) 10/13/21 04:42 Creatinine 0.32 mg/dL (0.55-1.3) L 10/13/21 04:42 Glucose 186 mg/dL (74-106) H 10/13/21 04:42 Uric Acid 3.8 mg/dL (2.6-6.0) 10/12/21 06:12 Phosphorus 3.1 mg/dL (2.5-4.9) 10/13/21 04:42 Magnesium 1.8 mg/dL (1.8-2.4) 10/13/21 04:42 Total Bilirubin 0.3 mg/dL (0.2-1.0) 10/10/21 04:45 AST 11 U/L (15-37) L 10/10/21 04:45 ALT 16 U/L (12-78) 10/10/21 04:45 Alkaline Phosphatase 86 U/L (45-117) 10/10/21 04:45 Lipase 34 U/L (73-393) L 10/10/21 04:45 Home Medications: Diazepam [Valium] 5 mg PO DAILY PRN 12/18/14 Gabapentin [Neurontin] 600 mg PO NOON 12/18/14 Glipizide [Glipizide ER] 10 mg PO DAILY 12/18/14 Hydrocodone Bit/Acetaminophen [Hydrocodon-Acetaminophn 10-325] 1 each PO Q4HP PRN 12/18/14 Metformin ER [Glucophage ER*] 1,000 mg PO LUNCH 12/18/14 Metoprolol Tartrate [Lopressor*] 50 mg PO BID 12/18/14 Quinapril HCl [Accupril] 40 mg PO DAILY 06/21/15 gemfibroziL [Lopid*] 600 mg PO DAILY 12/18/14 Promethazine HCl 25 mg PO BID 10/10/21 Aspirin [Adult Low Dose Aspirin EC] 81 mg PO DAILY 10/11/21 Cholecalciferol (Vitamin D3) [Vitamin D 5,000 IU Cap*] 5,000 unit PO DAILY cap 10/13/21 Cyclobenzaprine [Flexeril*] 10 mg PO TIDP PRN tab 10/13/21 Docusate [Colace Cap*] 100 mg PO BID cap 10/13/21 Spironolactone [Aldactone*] 50 mg PO BID tab 10/13/21 Physician Discharge Instructions: Patient was treated with her home dose of [place] with IV medication as needed for breakthrough pain as well as Flexeril. Patient did not have any back pain red flags on admission, no no neuro findings. It was felt this is likely secondary to muscle strain and spasms. Physical therapy was consulted and worked with the patient. Patient had gradual improvement. Patient reported feeling like she was having a little bit more urinary incontinence than typical for her. She otherwise did not have any new neurologic findings on exam. An MRI of her lumbosacral region was obtained. No evidence of significant cord compression/herniations. Did note small diminished signal that is most consistent with mild osteoporotic compression fra in the T12 vertebral body, inferior right sacral ala. Unclear if these are old or new. May possibly be contributing to the patient's pain. Hypokalemia -Possibly secondary to urinary wasting with furosemide. Furosemide was replaced with spironolactone. Patient had improvement in more stability of her potassium levels. -She also continue to diurese well, with improvement of her lower extremity edema. The left lower extremity is chronically more edematous than the right. Social work/case management were consulted. Patient is discharged to inpatient rehab near her daughter. Diet: Regular Activity: Fall precautions Followup: Unknown,U [Primary Care Provider] - Time spent managing pt's care (in minutes): 45
== END 2021-10-13 14:47 | DRG 543 ==
LOC: ER 04:09 → ERHOLD 08:18 → OBSVTOIN 16:49 → 3RD-ICU 20:37
PROVIDERS: ADMIT Hospitalist; ATTEND Hospitalist
DX: M80.88XA Other osteoporosis with current pathological fracture, vertebra(e), initial encounter for fracture (principal); E44.0 Moderate protein-calorie malnutrition; E87.6 Hypokalemia; S39.012A Strain of muscle, fascia and tendon of lower back, initial encounter; X50.0XXA Overexertion from strenuous movement or load, initial encounter; Y92.009 Unspecified place in unspecified non-institutional (private) residence as the place of occurrence of the external cause; M62.830 Muscle spasm of back; E11.9 Type 2 diabetes mellitus without complications; M79.7 Fibromyalgia; E83.42 Hypomagnesemia; Z68.32 Body mass index [BMI] 32.0-32.9, adult; M32.9 Systemic lupus erythematosus, unspecified; I10 Essential (primary) hypertension; E78.5 Hyperlipidemia, unspecified; Z85.3 Personal history of malignant neoplasm of breast; Z20.822 Contact with and (suspected) exposure to COVID-19
CPT/HCPCS: 36415; 71045; 72148; 72195; 74176; 80048; 80053; 80069; 81003; 82947; 83036; 83690; 83735; 83880; 84100; 84132; 84550; 85025; 85027; 93005; 94760; 96361; 96365; 96366; 96375; 97116; 97161; 97530; 99285; G0378; J1170; J1650; J1815; J2405; J3475; J3480; J7030; U0003